=== PATIENT | male | born 1965 | race Caucasian/White ===

== ENCOUNTER → 2018-09-23 14:11 | Outpatient (CLI) | payer OTHER, SELFPAY ==
[2017-10-04 13:01] VITALS: BMI 38.4
--- NOTE | 2018-09-23 14:16 | RAD_ITS ---
HISTORY: left side rib pain after hitting up against a snow plow COMPARISON: None FINDINGS: # of images incl. paperwork: 5 XR Ribs Unilateral W/ PA Chest Min 3 Views: LINES/DEVICES: None. LUNGS: Radiographically clear. No consolidation, edema or effusion. No pneumothorax. MEDIASTINUM AND CARDIOVASCULAR STRUCTURES: Cardiac silhouette not enlarged. Central airways and mediastinal contour are unremarkable. RIBS AND OSSEOUS STRUCTURES: No apparent acute fractures. Chronic healed fracture mid shaft left clavicle. RAD/Ribs Uni Min 3V w/PA Chest IMPRESSION: Negative chest and ribs series. at 0159 Reported and signed by: Tayo Marie MD Electronically Signed: Tayo Marie, at 1:58 EST Tel , Service support ,
== END ==
PROVIDERS: Family Provider Family Medicine; PCP Family Medicine; Referring Provider Family Medicine; Visit Provider Family Medicine
DX: S20.212A Contusion of left front wall of thorax, initial encounter (principal)
CPT/HCPCS: 71101

== ENCOUNTER → 2019-05-08 09:43 | Outpatient (CLI) | payer OTHER, SELFPAY ==
[2017-10-04 13:01] VITALS: BMI 38.4
[2019-05-08 13:12] LABS: Hemoglobin A1c 5.6 % (4.2-6.3)
[2019-05-08 13:18] LABS: ALB/GLOB Ratio 1.1 RATIO (0.9-2.4); AST(SGOT) 27 U/L (15-37); Alanine Aminotransfer ALT/SGPT 41 U/L (16-61); Albumin, Serum 4.1 g/dL (3.2-5.0); Alkaline Phosphatase 65 U/L (45-117); Anion Gap 10 (5-15); BUN 20 mg/dL (7-18); BUN/Creat Ratio 16.4 RATIO (10-20); Chloride 106 mmol/L (98-107); Cholesterol 162 mg/dL (200); Creatinine, Serum 1.22 mg/dL (0.70-1.30); EST Glomerular Filtration Rate 66 mL/min (>60); Est Glom Filt Rate - Afr Amer 80 mL/min (>60); Globulin 3.9 g/dL (2.2-4.2); Glucose 87 mg/dL (74-106); High Density Lipoprotein 40 mg/dL; Potassium 3.9 mmol/L (3.5-5.1); Sodium Level 140 mmol/L (136-145); Triglycerides 128 mg/dL; Very Low Density Lipoprotein 26 mg/dL (5-40)
== END ==
PROVIDERS: Family Provider Family Medicine; PCP Family Medicine; Referring Provider Family Medicine; Visit Provider Nurse Practitioner Family
DX: E78.5 Hyperlipidemia, unspecified (principal); Z68.41 Body mass index [BMI] 40.0-44.9, adult
CPT/HCPCS: 36415; 80053; 80061; 83036

== ENCOUNTER → 2019-05-27 10:09 | Outpatient (CLI) | payer OTHER, SELFPAY ==
[2017-10-04 13:01] VITALS: BMI 38.4
--- NOTE | 2019-05-27 10:12 | RAD_ITS ---
STUDY: X-RAY - LEFT ELBOW REASON FOR EXAM: Male, 53 years old. Pain. Injury. TECHNIQUE: 3 view(s) of the elbow. COMPARISON: None. FINDINGS: Normal visualized humerus, radius and ulna. Normal radiocapitellar and ulnotrochlear articulations. There is dorsal soft tissue swelling over the olecranon. There is no demonstrated fracture. RAD/Elbow min 3 Views IMPRESSION: No fracture or dislocation. Electronically Signed: Jovan Santana MD at 18:02 EDT , Service support ,
== END ==
PROVIDERS: Family Provider Family Medicine; PCP Family Medicine; Referring Provider Family Medicine; Visit Provider Family Medicine
DX: M25.522 Pain in left elbow (principal)
CPT/HCPCS: 73080

== ENCOUNTER → 2019-11-20 10:45 | Outpatient (CLI) | payer OTHER, SELFPAY ==
[2019-11-20 13:03] LABS: Anion Gap 4 (5-15); BUN 18 mg/dL (7-18); BUN/Creat Ratio 16.8 RATIO (10-20); Calcium,Total 8.9 mg/dL (8.5-10.1); Chloride 108 mmol/L (98-107); Creatinine, Serum 1.07 mg/dL (0.70-1.30); EST Glomerular Filtration Rate 77 mL/min (>60); Est Glom Filt Rate - Afr Amer 93 mL/min (>60); Glucose 89 mg/dL (74-106); Potassium 4.2 mmol/L (3.5-5.1); Sodium Level 138 mmol/L (136-145)
== END ==
PROVIDERS: PCP Family Medicine; Visit Provider Family Medicine
DX: I10 Essential (primary) hypertension (principal)
CPT/HCPCS: 36415; 80048

== ENCOUNTER 2020-06-21 07:28 | Day surgery (SDC) | payer OTHER, SELFPAY ==
[2017-10-04 13:01] VITALS: BMI 38.4
[2020-06-21] VITALS (7 sets, daily range): BP systolic 109–138; BP diastolic 74–93; PULSE 69–82; RESP 16; TEMP 36.6–36.8; O2SAT 92–97; BMI 37.9
--- NOTE | 2020-06-21 08:23 | HP.PCM_ITS ---
History of Present Illness Date of Admission: 06/21/20 The patient is a 54 year old M who presents for screening colonoscopy. He has never had a colonoscopy in the past. He denies any blood in his stool or abdominal pain. No family history of colon cancer. Past Medical/Surgical History - Planned Operation Planned Operative Procedure/s: COLONSCOPY Date of Operative Procedure: 06/21/20 Permit Signed: Yes S.O.S: No Is This Patient Having a Total Joint: No - Previous Hospitalizations/Surgeries HX Hospitalizations: No HX of Surgeries: APPENDECTOMY. R THUMB. HERNIA. 2 L KNEE. R KNEE Any Problems With Anesthesia: No You/Your Family Experience Fever (Hyperthermia) With Anes: No Cholinesterase deficiency: No - Cardiovascular Hx Chest Pain within Last 2 months: No Hx of Irregular Heartbeat and/or Afib: No Hx Heart Attack: No Hx Congestive Heart Failure: No Hx Rheumatic Fever: No Hx Hypertension: Yes - ON MEDS Hx Internal Defibrillator: No Hx Pacemaker: No Hx Cardiac Catheterization: No Hx Cardiac Surgery/Stents/Etc.: No Hx Stress Test: Yes - 15-18 YRS AGO HX Edema: No Hx Pain in Legs when Walking/Leg Cramps: No - Respiratory Chronic Cough: No HX of Shortness of Breath: No Hoarseness: No Hx Chronic Obstructive Pulmonary Disease (COPD): No Hx Asthma: No Hx Emphysema: No Hx Sleep Apnea: Yes CPAP: Yes - NON-COMPLIANT BIPAP: No Hx Oxygen Use at Home: No Hx Respiratory Tract Infection/Cold (presently): No Result (for STOP score): Positive Hx Smoking: No Smoking Status: Never smoker - Gastrointestinal Hx Gastroesophageal Reflux: No Hx Gastrointestinal Disorders: No Hx Gastrointestinal Bleed: No Hx Ulcer: No Hx Hiatal Hernia: No Difficulty Chewing/Swallowing: No Recent Onset of Swallowing Problems: No Special diet followed at home: No Hx Unplanned Weight Loss of 20#: No HX Unplanned Weight Gain of 20#: No - Neurological Hx Seizures: No HX Syncope/Blackout Spells/Unconsciousness: No Hx CVA/Stroke: No Hx Transient Ischemic Attacks (TIA): No Hx Multiple Sclerosis: No Hx Parkinson's Disease: No Hx Head/Neck Injury: No Hx Headaches: No Hx Back Injury/Pain: No Recent Onset of Speech Difficulty: No Restless Legs: No Does patient have nerve stimulator: No - Blood Disorder Hx Leukemia: No Bleeding Tendencies: No Hx Deep Vein Thrombosis: No Hx High Cholesterol: Yes - ON MED Blood Transmitted Disease: No Hx Hepatitis: No Hx Cirrhosis: No Hx Anemia: No Hx Blood Disorders: No - Genitourinary Hx Renal Disease: No - Musculoskeletal Hx Arthritis: No Hx Rheumatoid Arthritis: No Hx Gout: Yes Recent Onset of an Orthopedic Problem: No - Endocrine Hx Diabetes: No Thyroid Disease: No Hx Steroid Therapy: No - Psycho/Social Hx Substance Use: No Hx Alcohol Use: Yes - SOCIAL Hx Anxiety: No Hx Depression: No Mental Illness: No Hx Dementia: No - Miscellaneous Hx Cancer: No Recent Exposure to Contagious Disease: No Active MRSA: No Hx of C-Diff: No Any Loose Teeth: No Allergies No Known Allergies Allergy (Verified 06/14/20 09:42) - Discharge Is Pt Admitted From a Detention, or a Intermediate: No Who Could Help: After D/C, Where Do you Plan to Go: Return Home - Physical Exam Vitals/I&O's: Vital Signs Temp Pulse Resp BP Pulse Ox 98 F 77 16 138/93 H 96 06/21/20 07:51 06/21/20 07:51 06/21/20 07:51 06/21/20 07:51 06/21/20 07:51 Oxygen Delivery Method Room Air Weight: 256 lb 13.416 oz Body Mass Index (BMI) 37.9 General: Alert, Oriented x3 Lungs: Normal air movement Cardiovascular: Regular rate, Regular Rhythm Abdomen: Soft, Non Tender, Non-Distended Current Medications Lactated Ringer's () 1,000 mls @ 100 mls/hr IV .Q10H [facility] Assessment/Plan 54-year-old male for screening colonoscopy I explained endoscopy in detail to the patient. I explained the risks including but not limited to stroke or heart attack with anesthesia, perforation of the GI tract, bleeding, infection. I explained that any of these could necessitate further emergency surgery. The patient understands and all questions were answered sufficiently. The patient wishes to proceed with procedure. We discussed the current risks associated with COVID-19. While it is understood that there is a community spread of COVID-19, the risk of zoya COVID-19 while at [facility] ([facility]) is very low; however, the risk cannot be completely mitigated because of the community spread of the disease. We discussed in detail the risk of exposure to and/or potential harm posed by the COVID-19 virus with having a surgery/procedure at this time versus the risk of delaying the surgery/procedure. It is not possible to know either the risk of delaying the surgery or procedure or chance of getting an infection with perfect accuracy, but a joint decision was made to proceed at this time with the scheduled surgery/procedure as indicated on the consent form. Patient was notified that we will need to comply with any screening or testing [facility] wishes to perform or that surgery may be delayed for any positive results. Silviano Villegas MD Pager: [facility] [address] [place] [address] [address] [place] [address] Office: Surgery Risks - Colonoscopy Risks Include but are not Limited To: Risks include but are not limited to: Bleeding, perforation requiring further surgery, inability to complete colonoscopy requiring barium enema.
--- NOTE | 2020-06-21 08:47 | OP.COLON_ITS ---
Patient Name: Joaquim Conn Procedure Date: 06/21/2020 8:29 AM Date of : 1965 Age: 54 Procedure: Colonoscopy Indications: Screening for colorectal malignant neoplasm Providers: Silviano Villegas MD Referring MD: David Murray MD Medicines: Monitored Anesthesia Care Patient Profile: This is a 54 year old male. Refer to note in patient chart for documentation of history and physical. Last Colonoscopy: none. The patient's first colonoscopy is today. Complications: No immediate complications. Procedure: Pre-Anesthesia Assessment: - Prior to the procedure, a History and Physical was performed, and patient medications and allergies were reviewed. The patient's tolerance of previous anesthesia was also reviewed. The risks and benefits of the procedure and the sedation options and risks were discussed with the patient. All questions were answered, and informed consent was obtained. Prior Anticoagulants: The patient has taken no previous anticoagulant or antiplatelet agents. After reviewing the risks and benefits, the patient was deemed in satisfactory condition to undergo the procedure. After I obtained informed consent, the scope was passed under direct vision. Throughout the procedure, the patient's blood pressure, pulse, and oxygen saturations were monitored continuously. The pediatric colonoscope was introduced through the anus and advanced to the cecum, identified by appendiceal orifice and ileocecal valve. The colonoscopy was performed without difficulty. The patient tolerated the procedure well. The quality of the bowel preparation was good. Scope In: 8:34:43 AM Scope Withdrawal Time 0 hours 6 minutes 1 second Scope Out: 8:43:15 AM Total Procedure Duration Time 0 hours 8 minutes 32 seconds Findings: The entire examined colon appeared normal on direct and retroflexion views. Impression: - The entire examined colon is normal on direct and retroflexion views. - No specimens collected. Recommendation: - Discharge patient to home. - Resume previous diet. - Continue present medications. - Repeat colonoscopy in 10 years for screening purposes. Procedure Code(s): --- Professional --- 93661, Colonoscopy, flexible; diagnostic, including collection of specimen(s) by brushing or washing, when performed (separate procedure) Diagnosis Code(s): --- Professional --- Z12.11, Encounter for screening for malignant neoplasm of colon CPT copyright 2017 [employer] [place] [employer]. All rights reserved. The codes documented in this report are preliminary and upon roll over loader review may be revised to meet current compliance requirements. Silviano Villegas MD 06/21/2020 8:46:25 AM This report has been signed electronically. Number of Addenda: 0 Note Initiated On: 06/21/2020 8:29 AM
--- NOTE | 2020-06-21 08:47 | OP.CCLET_ITS ---
06/21/2020 David Murray MD [address] [id number] Re : Colonoscopy procedure for Joaquim Conn Dear Dr. Murray This procedure was performed on Sunday, June 21, 2020. My impressions and recommendations are as follows: Impressions : - The entire examined colon is normal on direct and retroflexion views. - No specimens collected. Recommendations : - Discharge patient to home. - Resume previous diet. - Continue present medications. - Repeat colonoscopy in 10 years for screening purposes. My findings are described in the full procedure note, which is enclosed. If I can be of further assistance, please feel free to contact me at Doctor phone number(s): , Work: . Sincerely, Silviano Villegas MD 06/21/2020 8:46:25 AM This report has been signed electronically.
== END 2020-06-21 09:30 | disposition home or self-care (01) ==
LOC: EN 07:29 → AC 07:29
PROVIDERS: Anesthesiology; PCP Family Medicine; Referring Provider Family Medicine; Visit Provider Surgery
PROC: 0DJD8ZZ Inspection of Lower Intestinal Tract, Via Natural or Artificial Opening Endoscopic (ICD-10-PCS; CPT 45378; principal; 2020-06-21 08:25)
DX: Z12.11 Encounter for screening for malignant neoplasm of colon (principal); I10 Essential (primary) hypertension; G47.30 Sleep apnea, unspecified; Z91.19 Patient's noncompliance with other medical treatment and regimen; E78.00 Pure hypercholesterolemia, unspecified; Z20.828 Contact with and (suspected) exposure to other viral communicable diseases; Z79.899 Other long term (current) drug therapy
CPT/HCPCS: 45378; 87635; C9803; J7120; J2405; U0003

== ENCOUNTER → 2021-01-13 15:13 | Outpatient (CLI) | payer OTHER, SELFPAY ==
[2020-06-21 07:51] VITALS: BMI 37.9
--- NOTE | 2021-01-13 16:00 | MRI_ITS ---
STUDY: MRI LEFT KNEE REASON FOR EXAM: Male, 55 years old. Left knee sprain. TECHNIQUE: Standardized fat and water weighted pulse sequences were obtained in all 3 orthogonal planes. COMPARISON: 06/26/2016. FINDINGS: There is truncation of the inner third of the medial meniscus consistent with partial meniscectomy. Otherwise consider tear. Normal hyaline cartilage of the medial femorotibial compartment. Mild marrow edema in the medial tibial plateau consistent with early degenerative changes. Normal medial collateral ligamentous complex (MCL). Normal distal semimembranosus, gracilis and semitendinosus tendons. Normal lateral meniscus. Normal hyaline cartilage of the lateral femorotibial compartment. Normal lateral femoral condyle and tibial plateau. Normal proximal tibiofibular articulation. Normal lateral collateral (fibular) ligament. Normal popliteus tendon. Normal biceps femoris tendon. Normal anterior cruciate ligament (ACL). Normal posterior cruciate ligament (PCL). Normal congruent patellofemoral articulation. Mild fissuring of the patellar cartilage medially and at the median ridge. Signal abnormality of the medial trochlear cartilage. Normal medial and lateral patellar retinaculum. Normal quadriceps tendon. Normal patellar tendon. Normal Hoffa''s fat pad. Moderate joint effusion. Gastrocnemius-semimembranosus bursal prolapse. The soft tissues are unremarkable. The otherwise visualized osseous structures are unremarkable. MRI/Lower Ext Joint Only (Routine) IMPRESSION: 1. Joint effusion and bursal prolapse. 2. Fissuring of the patellar cartilage. 3. Prior partial medial meniscectomy, otherwise consider meniscal tear. 4. Early degenerative changes of the medial tibial plateau. Electronically Signed: Maryann Hernandez MD at 21:32 EDT Tel , Service support ,
== END ==
PROVIDERS: PCP Family Medicine; Referring Provider Family Medicine; Visit Provider Family Medicine
DX: S83.92XA Sprain of unspecified site of left knee, initial encounter (principal); X58.XXXA Exposure to other specified factors, initial encounter; M17.12 Unilateral primary osteoarthritis, left knee
CPT/HCPCS: 73721

== ENCOUNTER → 2021-05-26 09:47 | Outpatient (CLI) | payer OTHER, SELFPAY ==
[2021-05-26 12:46] LABS: Anion Gap 8 (5-15); BUN 20 mg/dL (7-18); BUN/Creat Ratio 15.9 RATIO (10-20); Calcium,Total 9.2 mg/dL (8.5-10.1); Chloride 105 mmol/L (98-107); Creatinine, Serum 1.26 mg/dL (0.70-1.30); EST Glomerular Filtration Rate 63 mL/min (>60); Est Glom Filt Rate - Afr Amer 76 mL/min (>60); Glucose 100 mg/dL (74-106); Potassium 4.1 mmol/L (3.5-5.1); Sodium Level 137 mmol/L (136-145)
== END ==
PROVIDERS: PCP Family Medicine; Referring Provider Family Medicine; Visit Provider Family Medicine
DX: I10 Essential (primary) hypertension (principal)
CPT/HCPCS: 36415; 80048

== ENCOUNTER → 2021-06-08 12:06 | Outpatient (CLI) | payer OTHER, SELFPAY ==
--- NOTE | 2021-06-08 12:10 | RAD_ITS ---
STUDY: X-RAY - RIGHT SHOULDER REASON FOR EXAM: Male, 55 years old. RC INJURY TECHNIQUE: 4 view(s) of the shoulder. COMPARISON: None. FINDINGS: Normal glenohumeral articulation. Normal acromioclavicular joint. Normal acromion. Normal humeral head and visualized proximal humerus. The soft tissue structures are unremarkable. Normal visualized pulmonary apex. RAD/Shoulder min 2 Views IMPRESSION: Normal x-ray examination of the shoulder. Electronically Signed: Jesus Draper MD at 15:11 EDT , Service support ,
== END ==
PROVIDERS: PCP Family Medicine; Referring Provider Family Medicine; Visit Provider Family Medicine
DX: S46.009A Unspecified injury of muscle(s) and tendon(s) of the rotator cuff of unspecified shoulder, initial encounter (principal)
CPT/HCPCS: 73030

== ENCOUNTER → 2021-07-25 07:13 | Outpatient (CLI) | payer OTHER, SELFPAY ==
--- NOTE | 2021-07-25 07:26 | MRI_ITS ---
STUDY: MRI RIGHT SHOULDER REASON FOR EXAM: Right shoulder pain and limited range of motion for 1.5 months, no specific injury. TECHNIQUE: Standardized fat and water weighted pulse sequences were obtained in all 3 orthogonal planes. COMPARISON: Radiographs 06/08/2021. FINDINGS: There is mild supraspinatus tendinosis and a small linear low to intermediate grade partial-thickness tear of the articular surface of the distal supraspinatus tendon at the greater tuberosity insertion (proton-density coronal image 14) with very mild delamination. There is infraspinatus tendinosis (T2 coronal images 9, 10) without discrete tendon tear. Normal subscapularis tendon. Normal teres minor tendon. There is a low-grade strain of the distal supraspinatus muscle (T2 coronal images 15, 16). Normal infraspinatus muscle. Normal subscapularis muscle. Normal teres minor muscle. There is mild glenohumeral arthrosis with mild chondral thinning of the glenoid (T2 axial images 14, 15) and very small subchondral cyst of the glenoid. There is cystic change of the greater tuberosity. Normal biceps labral complex. Normal intracapsular long biceps tendon. Normal labrum. Normal capsulo- ligamentous complex. There is mild acromioclavicular arthrosis (T2 sagittal image 16). There is a Type II morphology (curved), with a neutral orientation. There is no subacromial-subdeltoid bursal fluid. Normal visualized coracohumeral and coracoacromial ligaments. Normal deltoid muscle. Normal trapezius muscle. MRI/Upper Ext Joint Only(Routine) IMPRESSION: Small partial-thickness tear and mild tendinosis of the supraspinatus tendon. Infraspinatus tendinosis. Low-grade strain of the supraspinatus muscle. Mild glenohumeral arthrosis. Mild acromioclavicular arthrosis. Electronically Signed: Herbert Silva MD at 9:28 EST Tel , Service support ,
== END ==
PROVIDERS: PCP Family Medicine; Referring Provider Family Medicine; Visit Provider Family Medicine
DX: M25.511 Pain in right shoulder (principal)
CPT/HCPCS: 73221

== ENCOUNTER 2021-07-30 12:09 | Emergency (ER) | payer OTHER, SELFPAY ==
[2021-07-30 12:10] VITALS: BP 149/98; PULSE 93; RESP 17; TEMP 35.6; O2SAT 94; BMI 39.2
--- NOTE | 2021-07-30 12:30 | VDLE_ITS ---
Reason For Study: PAIN RIGHT LEFT GSV is normal. CFV is compressible, spontaneous, phasic, CFV is compressible, spontaneous, phasic, competent, and demonstrates normal competent and demonstrates normal augmentation. augmentation. FV is compressible, spontaneous, phasic, competent and demonstrates normal augmentation. POP V is compressible, spontaneous, phasic, competent and demonstrates normal augmentation. T/P Trunk is compressible. PTV is compressible. RT PerV is compressible. There is a non-vascularized, echogenic structure noted in the Popliteal space, measuring 4.10 x 2.71 cm. VL/Venous Duplex US, Unilateral Interpretation Summary There is no evidence of right lower extremity deep vein thrombosis. Right great saphenous vein appears patent and compressible segmentally. Right popliteal space 4.1 x 2.71 c m nonvascular cystic structure consistent with a Posey's cyst. Clinical correlation would be appropr iate. Normal flow patterns left common femoral vein Ordering Physician: Delon Mohamud Referring Physician: ALIE NGUYEN Performed By: Evelin Garcia, BRITTANIE, RVT
--- NOTE | 2021-07-30 12:30 | EX.ED.UPPERE ---
HPI History of Present Illness HPI Narrative: Patient presents with right knee pain that has been getting worse over the past 1-1/2 weeks. Patient states she is concerned over possible blood clot. Patient states the pain is localized to the posterior aspect of his right knee and into his right calf. Patient denies any specific trauma or injury. Patient describes his pain as sharp. Patient states his pain is worse with complete extension of his right knee. Patient states nothing seems to help with the pain. Patient denies any paresthesias or weakness. Patient also complains of pain in both shoulders. Patient had a recent MRI which showed a rotator cuff tear in his right shoulder. Chief Complaint: Upper Extremity Injury Informant: patient Onset/Context/Timing Onset: Weeks (1.5) Context: Gradual Onset Timing: Continuous Quality of Pain: Sharp Location: Right popliteal area and right calf Worsened by: Complete extension Relieved by: Nothing Associated Symptoms Associated Symptoms: Negative for Parasthesia, Weakness and Loss of Funtion PFSH PFSH Medical History (Updated 07/30/21 @ 13:[address] Delon Mohamud DO) Hyperlipidemia Hypertension Home Medications amlodipine 10 mg tablet 10 mg PO QDAY 10/04/17 [History Last Taken 06/21/20 06:30 10 MG] atorvastatin 20 mg tablet 20 mg PO QDAY 10/04/17 [History Last Taken Unknown] lisinopril 20 mg-hydrochlorothiazide 25 mg tablet 1 tab PO .once a day tab 10/04/17 [History Last Taken Unknown] meloxicam 15 mg PO DAILY #10 tab 07/30/21 [Rx Last Taken Unknown] Allergy/AdvReac Type Severity Reaction Status Date / Time No Known Allergies Allergy Verified 07/30/21 12:10 Family History (Updated 10/04/17 @ 13:05 by Jamee Chacko) Daughter Brain tumor Other Non Hodgkin's lymphoma Surgical History S/P hernia repair S/P left knee surgery S/P right knee surgery Social History Smoking Status: Never smoker ROS ROS ED Constitutional Constitutional ED: Denies chills or fever(s) Eyes Eyes: Denies blurry vision or change in vision ENT ENT ED: Denies rhinorrhea or sore throat Cardiovascular Cardiovascular: Denies chest pain or palpitations Respiratory/Chest Respiratory/Chest: Denies cough or dyspnea Gastrointestinal Gastrointestinal: Denies nausea or vomiting Genitourinary Genitourinary ED: Denies dysuria or hematuria Musculoskeletal Musculoskeletal: Denies back pain or neck pain Integumentary Denies abscess or rash Neurologic Neurologic: Denies headache(s) or weakness Allergic/Immunologic Allergic/Immunologic ED: Denies mouth swelling or urticaria EXAM Physical Exam Const Vital Signs: 07/30/21 12:10 Temperature 96.0 F L Temperature Source Temporal Pulse Rate 93 Respiratory Rate 17 Blood Pressure 149/98 H Blood Pressure Mean 115 Pulse Ox 94 Oxygen Delivery Method Room Air Positive well nourished and well developed General Appearance ED: well developed HEENT Reports moist mucous membranes Neck supple and no JVD Resp normal respiratory effort and clear to auscultation bilaterally Cardio regular rate, regular rhythm and no murmurs GI normal to inspection, nondistended, normoactive bowel sounds and non-tender Palpation: soft Extremity normal to inspection Extremity Narrative: There is some tenderness over the right popliteal area. There is also mild tenderness in the right upper calf area. There is no edema. There is no bony crepitance or step-off. There is no ecchymosis. Pedal pulses are equal bilaterally. Sensation was intact to light touch in all digits. General Extremety ED: Negative for edema or tenderness General Extremity: Negative for edema Neuro oriented x3, CN's II-XII intact bilaterally and no sensory deficits noted Sensorium / Orientation: alert Motor Exam: strength 5/5 throughout Psych mental status grossly normal Skin no rashes or lesions noted MDM MDM MDM Narrative Medical decision making narrative: Venous duplex of the right lower extremity was obtained. There is no evidence of DVT. There is a Posey's cyst noted. Patient was advised of his findings. Patient was given a prescription for meloxicam. Patient was instructed to follow-up with his primary care physician tomorrow as scheduled. Patient understood and was agreeable with the plan. All questions were answered. Discharge Plan Triage Chief Complaint: Upper Extremity Injury ED Provider: Delon Mohamud Dx/Rx/DC Orders Clinical Impression: Knee pain, right Instructions: ED Knee Pain of Uncertain Cause Prescriptions: New meloxicam 15 mg tablet 15 mg PO DAILY Qty: 10 RF: 0 No Action lisinopril-hydrochlorothiazide 20-25 mg tablet 1 tab PO .once a day RF: 0 amlodipine 10 mg tablet 10 mg PO QDAY RF: 0 atorvastatin 20 mg tablet 20 mg PO QDAY RF: 0 Primary Care Provider: David Murray Referrals: David Murray MD [Primary Care Provider] - [facility] appointment Disposition Disposition: Home, Self Care
[2021-07-30 13:36] VITALS: RESP 16
== END 2021-07-30 13:37 | disposition home or self-care (01) ==
PROVIDERS: Emergency Provider Emergency Medicine; PCP Family Medicine
DX: M25.561 Pain in right knee (principal); R60.0 Localized edema; E78.5 Hyperlipidemia, unspecified; I10 Essential (primary) hypertension; Z79.899 Other long term (current) drug therapy; Z79.1 Long term (current) use of non-steroidal anti-inflammatories (NSAID)
CPT/HCPCS: 93971; 99282; J7030

== ENCOUNTER → 2021-07-31 11:35 | Outpatient (CLI) | payer OTHER, SELFPAY ==
--- NOTE | 2021-07-31 11:38 | RAD_ITS ---
STUDY: X-RAY - RIGHT KNEE REASON FOR EXAM: Right knee pain. TECHNIQUE: 4 view(s) of the knee. COMPARISON: None. FINDINGS: Normal visualized distal femur. There is a small cyst in the tibial plateau near the midline. Normal proximal tibiofibular articulation. Normal medial femorotibial compartment. Normal lateral femorotibial compartment. There is mild joint space narrowing of the patellofemoral articulation. There is a joint effusion. There is a small enthesophyte at the superior pole of the patella. RAD/Knee 4 or More Views IMPRESSION: Mild patellofemoral arthrosis. Small joint effusion. Electronically Signed: Herbert Silva MD at 12:07 EST Tel , Service support ,
== END ==
PROVIDERS: PCP Family Medicine; Referring Provider Family Medicine; Visit Provider Family Medicine
DX: M25.569 Pain in unspecified knee (principal)
CPT/HCPCS: 73564

== ENCOUNTER 2021-09-14 10:59 | Outpatient (CLI) | payer OTHER, SELFPAY ==
[2021-09-14 11:14] LABS: Lyme Ab Screen Interpretation REF LAB
[2021-09-15 15:44] LABS: Lyme Scn Total Ab w/Rflx <0.91 ISR (0.00-0.90)
== END 2021-09-14 23:59 | disposition short-term general hospital (02) ==
LOC: MFPLAB 11:03
PROVIDERS: PCP Family Medicine; Referring Provider Family Medicine; Visit Provider Family Medicine
DX: M25.50 Pain in unspecified joint (principal)
CPT/HCPCS: 36415; 86618

== ENCOUNTER 2021-09-20 11:38 | Outpatient (CLI) | payer OTHER, SELFPAY ==
[2021-09-20 15:30] LABS: Absolute Lymphocyte Count 2.74 X10^3/uL (0.83-4.51); Absolute Neutrophil Count 7.9 X10^3/uL (2.0-7.7); Basophil# 0.04 X10^3/uL; Basophil% 0.3 % (0-1); Eosinophil# 0.05 X10^3/uL; Eosinophils% 0.4 % (0-5); Erythrocyte Sedimentation Rate 27 mm/hr (0-20); Hematocrit 44.4 % (40-54); Hemoglobin 15.1 g/dL (13.0-16.5); Lymphocyte # 2.74 X10^3/ul (0.83-4.51); Lymphocyte % 23.3 % (19-41); Mean Corpuscular Hgb 29.2 pg (27.0-32.0); Mean Corpuscular Volume 85.9 fL (80-94); Mean Platelet Vol. 9.6 fl (6.2-12.0); Monocyte# 1.02 X10^3/uL; Monocyte% 8.7 % (0-10); NRBC Flagged by Analyzer 0 % (0-5); Neutrophil # 7.89 X10^3/uL (2.7-7.7); Platelet Count 360 K/mm3 (150-450); RBC Distribution Width CV 13.6 % (11.6-14.6); RBC Distribution Width SD 42.7 fl (35.1-43.9); Red Blood Count 5.17 M/mm3 (4.6-6.2); White Blood Count 11.8 K/mm3 (4.4-11.0)
[2021-09-20 15:41] LABS: Vitamin D,25 Hydroxy 33.2 ng/mL
[2021-09-23 16:22] LABS: ANTINUCLEAR ANTIBODIES DIRECT Negative (Negative)
== END 2021-09-20 23:59 | disposition short-term general hospital (02) ==
LOC: MFPLAB 11:41
PROVIDERS: PCP Family Medicine; Referring Provider Family Medicine; Visit Provider Family Medicine
DX: M25.50 Pain in unspecified joint (principal)
CPT/HCPCS: 36415; 82306; 85025; 85652; 86038; 86140; 86431

== ENCOUNTER 2021-09-20 12:20 | Outpatient (CLI) | payer OTHER, SELFPAY ==
--- NOTE | 2021-09-20 12:30 | CT_ITS ---
STUDY: CT SOFT TISSUE NECK WITHOUT CONTRAST REASON FOR EXAM: Male, 55 years old. NECK SWELLING RADIATION DOSAGE (If Supplied By Facility): CTDIvol = ( 19.94 ) mGy, DLP = ( 574.81 ) mGycm TECHNIQUE: The patient was scanned in a multi-detector CT scanner. High resolution transaxial imaging was performed without the administration of intravenous contrast material. Sagittal and coronal images were reconstructed. Individualized dose optimization techniques were used for this CT. COMPARISON: None. FINDINGS: Normal bilateral parotid glands. Normal bilateral data support specialist spaces. Normal bilateral parapharyngeal spaces. Normal bilateral carotid spaces. Normal bilateral sublingual and submandibular glands and spaces. Normal visualized nasopharynx. Normal retropharyngeal space. Normal perivertebral space. Tiny calcifications in the palatine tonsils. The visualized tongue, tongue base and oropharynx are normal. There are minimally enlarged lymph nodes of the neck, with preservation of normal kelley architecture, consistent with a reactive lymph hyperplasia. There is no demonstrated solid or cystic mass lesion. Normal epiglottis, bilateral vallecula and hypopharynx. The pre-epiglottic and paraglottic adipose spaces are normal. Normal visualized bilateral piriform sinuses, aryepiglottic folds, vocal cords, and arytenoid-cricoid articulations. Normal subglottic trachea. Normal bilateral lobes of the thyroid gland. Normal visualized pulmonary apices. Normal visualized paranasal sinuses. Normal visualized cervical spine. CT/Soft Tissue Neck without Contr IMPRESSION: Tiny calcifications in the palatine tonsils. Electronically Signed: Jesus Draper MD at 12:57 EST , Service support ,
== END 2021-09-20 23:59 | disposition short-term general hospital (02) ==
LOC: CT 12:21
PROVIDERS: PCP Family Medicine; Referring Provider Family Medicine; Visit Provider Family Medicine
DX: R22.1 Localized swelling, mass and lump, neck (principal)
CPT/HCPCS: 70490

== ENCOUNTER 2021-10-02 09:41 | Outpatient (CLI) | payer OTHER, SELFPAY ==
[2021-10-02 12:47] LABS: AST(SGOT) 15 U/L (15-37); Absolute Lymphocyte Count 2.85 X10^3/uL (0.83-4.51); Absolute Neutrophil Count 7.9 X10^3/uL (2.0-7.7); Alanine Aminotransfer ALT/SGPT 51 U/L (16-61); Albumin, Serum 3.9 g/dL (3.2-5.0); Alkaline Phosphatase 55 U/L (45-117); Anion Gap 8 (5-15); BUN 20 mg/dL (7-18); BUN/Creat Ratio 18.7 RATIO (10-20); Basophil# 0.07 X10^3/uL; Basophil% 0.6 % (0-1); Calcium,Total 9.6 mg/dL (8.5-10.1); Chloride 101 mmol/L (98-107); Creatinine, Serum 1.07 mg/dL (0.70-1.30); EST Glomerular Filtration Rate 76 mL/min (>60); Eosinophil# 0.06 X10^3/uL; Eosinophils% 0.5 % (0-5); Est Glom Filt Rate - Afr Amer 92 mL/min (>60); Glucose 80 mg/dL (74-106); Hematocrit 45.6 % (40-54); Hemoglobin 15.5 g/dL (13.0-16.5); Lymphocyte # 2.85 X10^3/ul (0.83-4.51); Lymphocyte % 24.1 % (19-41); Mean Corpuscular Hgb 28.5 pg (27.0-32.0); Mean Corpuscular Volume 83.8 fL (80-94); Mean Platelet Vol. 9.4 fl (6.2-12.0); Monocyte# 0.85 X10^3/uL; Monocyte% 7.2 % (0-10); NRBC Flagged by Analyzer 0 % (0-5); Neutrophil # 7.92 X10^3/uL (2.7-7.7); Neutrophil % 66.8 % (47-70); Platelet Count 363 K/mm3 (150-450); Potassium 3.6 mmol/L (3.5-5.1); Protein, Total 7.9 g/dL (6.4-8.2); RBC Distribution Width CV 13.8 % (11.6-14.6); Red Blood Count 5.44 M/mm3 (4.6-6.2); Sodium Level 135 mmol/L (136-145); White Blood Count 11.8 K/mm3 (4.4-11.0)
[2021-10-02 13:03] LABS: Rheumatoid Factor 31.9 IU/mL (<15)
[2021-10-02 13:20] LABS: Hepatitis B Surface Antibody Reactive; Hepatitis B Surface Antigen Non-Reactive (Nonreactive); Hepatitis C Antibody Non-Reactive (Nonreactive)
[2021-10-04 22:06] LABS: QNTFERON TB Mitogen Value > 10.00 IU/mL (.); QNTFERON TB Nil Value 0.02 IU/mL (.); QNTFERON TB1+ Ag Value 0.01 IU/mL (.); QNTFERON TB2+ Ag Value 0 IU/mL (.)
[2021-10-05 07:46] LABS: CCP IgG Antibodies 6 units (0-19); QNTIFERON TB Positive Criteria Negative (Negative)
== END 2021-10-02 23:59 | disposition short-term general hospital (02) ==
LOC: MTLAB 09:42
PROVIDERS: PCP Family Medicine; Referring Provider Internal Medicine Rheumatology; Visit Provider Internal Medicine Rheumatology
DX: M05.79 Rheumatoid arthritis with rheumatoid factor of multiple sites without organ or systems involvement (principal); I10 Essential (primary) hypertension; E78.5 Hyperlipidemia, unspecified
CPT/HCPCS: 36415; 80053; 85025; 86200; 86431; 86480; 86706; 86803; 87340

== ENCOUNTER → 2022-01-23 | Outpatient (CLI) | payer OTHER, SELFPAY ==
--- NOTE | 2022-01-23 06:38 | MRI_ITS ---
STUDY: MRI CERVICAL SPINE WITHOUT CONTRAST REASON FOR EXAM: Male, 56 years old. Neck pain and right arm pain. TECHNIQUE: Standardized fat and water weighted pulse sequences were obtained in the sagittal and axial planes. COMPARISON: MRI cervical spine without contrast 04/17/2016. CT neck without contrast 09/20/2021. FINDINGS: Normal foramen magnum and brainstem-cervical cord junction. Normal craniovertebral junction. Normal anterior atlantoaxial articulation. Normal odontoid process. Normal cervical lordosis. Normal vertebral bodies and posterior osseous elements. C2-3: Normal endplates. Normal disc height, signal and morphology. Normal central canal and intervertebral neural foramina. C3-4: Normal endplates. Normal disc height and morphology. Normal central canal and left intervertebral neural foramen. Pronounced stenosis of the right intervertebral neural foramen. C4-5: Normal endplates. Normal disc height, signal and morphology. Normal central canal. Pronounced stenosis of the right intervertebral neural foramen. Normal left intervertebral neural foramen. C5-6: Anterior marginal spurs. Pronounced disc space height narrowing. Prominent ventral extra dural defect eccentric to the right posterior marginal spurs. This is causing mild indentation of the ventral cord surface, right side more than left. Mild asymmetric central canal stenosis. Pronounced stenosis of the intervertebral neural foramina. C6-7: Normal endplates. Moderate disc space height narrowing. Mild ventral SOB defect due to posterior marginal spurs. Normal central canal. Pronounced stenosis of the intervertebral neural foramina. C7-T1: Normal endplates. Normal disc height, signal and morphology. Normal central canal and intervertebral neural foramina. T1-T2, T2-T3 and T3-T4: (Sagittal only). Normal endplates. Normal disc height and morphology. Normal central canal and intervertebral neural foramina. No intrinsic signal abnormality of the cervical spinal cord particularly at the C5-C6 disc space level where there is mild indentation and deformity of the ventral cord surface. Normal remaining cervical spinal cord. Normal included upper thoracic spinal cord. Normal included portions of the brainstem and cerebellum. Normal visualized soft tissue structures. MRI/Spine Cervical (Routine) IMPRESSION: 1. Mild deformity of the ventral cord surface due to prominent posterior marginal spurs, eccentric to the right at C5-C6 disc space level and pronounced stenosis of the intervertebral neural foramina. 2. No MRI evidence of myelomalacia of the cervical spinal cord. 3. Pronounced stenosis of the C6-C7 intervertebral neural foramina due to osteophytic encroachment. 4. Pronounced stenosis of the right C3-C4 and right C4-C5 intervertebral neural foramina due to osteophytes. 5. No obvious significant interval change when compared to MRI C-spine of 04/17/2016. COMMENT: The osteophytes are better seen on CT neck of 09/20/2021. Electronically Signed: Curt Shah MD at 11:51 EDT ,
== END | disposition home or self-care (01) ==
LOC: MRI 06:32
PROVIDERS: PCP Family Medicine
DX: M54.2 Cervicalgia (principal); M79.601 Pain in right arm
CPT/HCPCS: 72141

== ENCOUNTER → 2022-03-05 | Outpatient (CLI) | payer OTHER, SELFPAY ==
[2022-03-05 10:02] LABS: Absolute Lymphocyte Count 2.58 X10^3/uL (0.83-4.51); Absolute Neutrophil Count 4.5 X10^3/uL (2.0-7.7); Basophil# 0.05 X10^3/uL; Basophil% 0.6 % (0-1); Eosinophil# 0.08 X10^3/uL; Hematocrit 46.2 % (40-54); Hemoglobin 15.9 g/dL (13.0-16.5); Lymphocyte # 2.58 X10^3/ul (0.83-4.51); Lymphocyte % 32.7 % (19-41); Mean Corp Hgb Conc 34.4 g/dL (32-36); Mean Corpuscular Hgb 30.3 pg (27.0-32.0); Mean Corpuscular Volume 88.2 fL (80-94); Mean Platelet Vol. 9.6 fl (6.2-12.0); Monocyte# 0.65 X10^3/uL; Monocyte% 8.2 % (0-10); NRBC Flagged by Analyzer 0 % (0-5); Neutrophil # 4.52 X10^3/uL (2.7-7.7); Neutrophil % 57.2 % (47-70); Platelet Count 295 K/mm3 (150-450); RBC Distribution Width CV 14.3 % (11.6-14.6); RBC Distribution Width SD 45.5 fl (35.1-43.9); Red Blood Count 5.24 M/mm3 (4.6-6.2); White Blood Count 7.9 K/mm3 (4.4-11.0)
[2022-03-05 10:41] LABS: Anion Gap 6 (5-15); BUN 17 mg/dL (7-18); BUN/Creat Ratio 15.3 RATIO (10-20); Calcium,Total 9.3 mg/dL (8.5-10.1); Chloride 106 mmol/L (98-107); Cholesterol 188 mg/dL (200); Creatinine, Serum 1.11 mg/dL (0.70-1.30); EST Glomerular Filtration Rate 73 mL/min (>60); Est Glom Filt Rate - Afr Amer 88 mL/min (>60); Glucose 93 mg/dL (74-106); High Density Lipoprotein 54 mg/dL; Potassium 3.9 mmol/L (3.5-5.1); Sodium Level 138 mmol/L (136-145); Thyroid Stim Hormone (TSH) 1.38 uIU/mL (0.358-3.74); Triglycerides 74 mg/dL; Very Low Density Lipoprotein 15 mg/dL (5-40)
== END | disposition home or self-care (01) ==
LOC: MFPLAB 08:26
PROVIDERS: PCP Family Medicine; Visit Provider Family Medicine
DX: Z01.818 Encounter for other preprocedural examination (principal)
CPT/HCPCS: 36415; 80048; 80061; 84443; 85025

== ENCOUNTER 2022-09-17 14:38 | Inpatient (IN) | payer OTHER, SELFPAY ==
[2022-09-17 14:38] VITALS: BP 144/88; PULSE 90; RESP 20; TEMP 35.6; O2SAT 98; BMI 36.6
--- NOTE | 2022-09-17 15:08 | ED.VIS.GI ---
HPI <KIMBERLEE Sagastume - Last Filed: 09/17/22 21:59> HPI - GI History of Present Illness Chief Complaint: Abd Pain Narrative Narrative: Patient presents today with diverticulitis with perforated bowel that was diagnosed today. He began having left lower abdominal pain on and saw his PCP today who performed blood work and sent patient to [facility] for a CT scan of his abdomen and pelvis. Patient does not have a history of diverticulitis. Patient states he does not need anything for pain. <Dr. Wagner Uriostegui DO - Last Filed: 09/17/22 23:07> HPI - GI Narrative Narrative: Patient presents today with diverticulitis with perforation that was diagnosed today. He began having left lower abdominal pain on and saw his PCP today who performed blood work and sent patient to [facility] for a CT scan of his abdomen and pelvis. Patient does not have a history of diverticulitis. Patient states he does not need anything for pain. [facility] <KIMBERLEE Sagastume - Last Filed: 09/17/22 21:59> [facility] Medical History Hyperlipidemia Hypertension Obesity Rheumatoid arthritis Home Medications amlodipine 10 mg tablet 10 mg PO DAILY blood pressure 10/04/17 [History Last Taken 09/17/22] atorvastatin 20 mg tablet 20 mg PO DAILY cholesteral 10/04/17 [History Last Taken 09/17/22] lisinopril 20 mg-hydrochlorothiazide 25 mg tablet 1 tab PO DAILY blood pressure 10/04/17 [History Last Taken 09/17/22] cholecalciferol (vitamin D3) 125 mcg (5,000 unit) tablet 125 mcg PO DAILY SUPPLEMENT 09/17/22 [History Last Taken 09/16/22] folic acid 1 mg tablet 2 mg PO DAILY supplement 09/17/22 [History Last Taken 09/13/22] hydroxychloroquine 200 mg tablet 200 mg PO BID RHEUMATOID ARTHRITIS 09/17/22 [History Last Taken 09/13/22] meloxicam 15 mg tablet 15 mg PO DAILY rheumatoid arthritis 09/17/22 [History Last Taken 09/13/22] methotrexate sodium 2.5 mg tablet 20 mg PO COLON RHEUMATOID ARTHRITIS 09/17/22 [History Last Taken 09/09/22] prednisone 5 mg tablet 5 mg PO DAILY PRN FLARE UPS 09/17/22 [History Last Taken 09/10/22] turmeric 400 mg capsule 400 mg PO DAILY SUPPLEMENT 09/17/22 [History Last Taken 09/13/22] Allergy/AdvReac Type Severity Reaction Status Date / Time No Known Allergies Allergy Verified 07/30/21 12:10 Family History Daughter Brain tumor Sister Breast cancer Father Hypertension Other Non Hodgkin's lymphoma Surgical History History of appendectomy History of back surgery S/P hernia repair S/P left knee surgery S/P right knee surgery Social History household members: spouse Smoking Status: Never smoker alcohol intake: current alcohol intake frequency: a few times a month substance use type: does not use ROS <KIMBERLEE Sagastume - Last Filed: 09/17/22 21:59> ROS ED Constitutional Constitutional ED: Denies chills, fever(s) or sweats ENT ENT ED: Denies rhinorrhea or sore throat Cardiovascular Cardiovascular: Denies chest pain, palpitations or racing heartbeat Respiratory/Chest Respiratory/Chest: Denies cough, dyspnea or dyspnea on exertion Gastrointestinal Gastrointestinal: Reports abdominal pain; Denies nausea or vomiting Genitourinary Genitourinary ED: Denies dysuria, hematuria or urinary frequency Musculoskeletal Musculoskeletal: Denies arthralgias, back pain or myalgias Integumentary Denies abscess, Abrasions or rash Neurologic Neurologic: Denies headache(s), paresthesias or weakness Psychiatric Psychiatric: Denies anxiety, depression or suicidal thoughts EXAM <KIMBERLEE Sagastume - Last Filed: 09/17/22 21:59> Physical Exam Const Vital Signs: 09/17/22 14:38 Temperature 96.1 F L Temperature Source Temporal Pulse Rate 90 Respiratory Rate 20 H Blood Pressure 144/88 H Blood Pressure Mean 106 Pulse Ox 98 Oxygen Delivery Method Room Air Positive well nourished and well developed General Appearance ED: well developed and NAD HEENT Reports moist mucous membranes normocephalic and atraumatic Eyes PERRL and EOMs intact bilaterally Neck no lymphadenopathy and supple Resp normal respiratory effort and clear to auscultation bilaterally Cardio regular rate, regular rhythm and no murmurs GI non-distended and no masses GI Narrative: Patient does have some tenderness to palpation in the lower left quadrant. Palpation: soft Extremity full ROM Neuro CN's II-XII intact bilaterally, moves all extremities, no sensory deficits noted and gait normal Sensorium / Orientation: alert Motor Exam: strength 5/5 throughout Psych mental status grossly normal and thought process normal Skin no wounds General Skin Exam: Negative for jaundice <Dr. Wagner Uriostegui DO - Last Filed: 09/17/22 23:07> Physical Exam Const Vital Signs: 09/17/22 14:38 Temperature 96.1 F L Temperature Source Temporal Pulse Rate 90 Respiratory Rate 20 H Blood Pressure 144/88 H Blood Pressure Mean 106 Pulse Ox 98 Oxygen Delivery Method Room Air [facility] <KIMBERLEE Sagastume - Last Filed: 09/17/22 21:59> [facility] Narrative Medical decision making narrative: Patient was started on Zosyn here in the ED and given a liter of fluids. Vital signs are stable and he is in no acute distress. He is nontoxic-appearing. I offered patient pain control and he declined stating he was not in any pain and did not need it. Dr. Castelan agreed to be consulted and in agreement that patient be admitted to the hospital for further treatment. Patient has been discussed with hospitalist and will be admitted to the hospital for further surgical treatment. Patient is comfortable with plan. <Dr. Wagner Uriostegui, - Last Filed: 09/17/22 23:07> [facility] Treatment and Re-Evaluation Narrative: This patient was seen with a PA/PHARMACEUTICAL ASSISTANT Individually assessed they patient including history and physical. I have reviewed everything on the chart that is available and agree with the documentation provided by the PA/PHARMACEUTICAL ASSISTANT including discussion about the assessment, treatment plan, discussion, and return precautions. Patient seen and evaluated on arrival for abdominal pain. He had previous lab work done today which was within normal limits. CT of the abdomen pelvis was obtained which showed diverticulitis with a small area of perforation. No abscess was noted. Given this reading I did speak with Dr. Castelan who is on-call for surgery. Patient given Zosyn. He does not want a thing for pain as his pain is minimal at rest. Patient discussed with the hospitalist for admission. Impression: #1 acute diverticulitis with colon perforation Discharge Plan Dx/Rx/DC Orders Clinical Impression: Diverticulitis of colon with perforation Disposition Disposition: Acute Care Hospital [facility] Discharge Date/Time: 09/17/22 16:34
--- NOTE | 2022-09-17 15:30 | HP.PCM.HOS_ITS ---
HPI - General General Date of Admission: 09/17/22 Date of Service: 09/17/22 Chief Complaint: LLQ abdominal pain. HPI Narrative The patient is a 56 y/o M w/ PMHx: Rheumatoid arthritis, Obesity, HTN, HLD who presents to the [facility] ED on 09/17/22 with history of recently having onset of left lower quadrant abdominal pain starting on prior to current presentation with PCP evaluation with outpatient CBC, CMP and CT scan of his abdomen and pelvis with imaging consistent with unfortunately sigmoid diverticulitis with a loculated perforation with no significant lab derangements however given CT finding referred to the ED for evaluation and treatment. Patient reported onset of fevers up to 103 starting on Saturday and Saturday with no associated nausea or emesis but significant chills concurrently as well as loose stools since onset of abdominal discomfort which has been ongoing. He did not take his rheumatoid medications which were due 09/16/2022. He also with onset discussed with his family who are in healthcare his current situation and at that time they had recommended transitioning to clear liquid/soft diet until evaluation. Work-up in the ED included T96.1, heart rate 90, BP 144/88, respiratory rate 20, 98% on room air. All other evaluation performed outpatient by primary care physician and included CBC with WBC 6.9, hemoglobin 15.1, platelet 374 without marked shift, CMP unremarkable with no acute findings, lipase 111, CT abdomen and pelvis with localized acute sigmoid diverticulitis with loculated perforation the mesenteric side of the sigmoid mesentery. In the ED patient ministered IV Zosyn therapy. ED physician discussed case with Dr. Castelan who made no current recommendations about interventions or treatment with planned evaluation. [facility] Medical History (Updated 09/17/22 @ 15:[address] Sugar Santiago MD) Hyperlipidemia Hypertension Obesity Rheumatoid arthritis Home Medications amlodipine 10 mg tablet 10 mg PO DAILY blood pressure 10/04/17 [History Last Taken 09/17/22] atorvastatin 20 mg tablet 20 mg PO DAILY cholesteral 10/04/17 [History Last Taken 09/17/22] lisinopril 20 mg-hydrochlorothiazide 25 mg tablet 1 tab PO DAILY blood pressure 10/04/17 [History Last Taken 09/17/22] cholecalciferol (vitamin D3) 125 mcg (5,000 unit) tablet 125 mcg PO DAILY SUPPLEMENT 09/17/22 [History Last Taken 09/16/22] folic acid 1 mg tablet 2 mg PO DAILY supplement 09/17/22 [History Last Taken 09/13/22] hydroxychloroquine 200 mg tablet 200 mg PO BID RHEUMATOID ARTHRITIS 09/17/22 [History Last Taken 09/13/22] meloxicam 15 mg tablet 15 mg PO DAILY rheumatoid arthritis 09/17/22 [History Last Taken 09/13/22] methotrexate sodium 2.5 mg tablet 20 mg PO COLON RHEUMATOID ARTHRITIS 09/17/22 [History Last Taken 09/09/22] prednisone 5 mg tablet 5 mg PO DAILY PRN FLARE UPS 09/17/22 [History Last Taken 09/10/22] turmeric 400 mg capsule 400 mg PO DAILY SUPPLEMENT 09/17/22 [History Last Taken 09/13/22] Allergy/AdvReac Type Severity Reaction Status Date / Time No Known Allergies Allergy Verified 07/30/21 12:10 Family History (Updated 09/17/22 @ 15:[address] Sugar Santiago MD) Daughter Brain tumor Sister Breast cancer Father Hypertension Other Non Hodgkin's lymphoma Surgical History (Updated 09/17/22 @ 15:[address] Sugar Santiago MD) History of appendectomy History of back surgery S/P hernia repair S/P left knee surgery S/P right knee surgery Social History (Updated 09/17/22 @ 15:[address] Sugar Santiago MD) household members: spouse Smoking Status: Never smoker alcohol intake: current alcohol intake frequency: a few times a month substance use type: does not use ROS ROS Narrative Admission Review of Systems: CONSTITUTIONAL: No weight loss, + fever, chills, weakness or fatigue. HEENT: Eyes: No visual loss, blurred vision, double vision or yellow sclerae. Ears, Nose, Throat: No hearing loss, sneezing, congestion, runny nose or sore t hroat. SKIN: No rash or itching, lesions, wounds. CARDIOVASCULAR: No chest pain, chest pressure or chest discomfort, palpitations, edema, orthopnea, syncopal events. RESPIRATORY: No shortness of breath, cough or sputum, wheezing, hemoptysis. GASTROINTESTINAL: + anorexia, abdominal pain, diarrhea, No nausea, vomiting, melena, BRBPR. GENITOURINARY: No dysuria, frequency, urgency or retention. NEUROLOGICAL: No headache, dizziness, syncope, paralysis, ataxia, numbness or tingling in the extremities, focal weakness, change in bowel or bladder control, seizure. MUSCULOSKELETAL: + muscle, back pain, joint pain or stiffness. HEMATOLOGIC: No anemia, bleeding or bruising. LYMPHATICS: No enlarged nodes. No history of splenectomy. PSYCHIATRIC: No history of depression or anxiety. ENDOCRINOLOGIC: No reports of sweating, cold or heat intolerance. No polyuria or polydipsia. ALLERGIES: No history of asthma, hives, eczema or rhinitis. Vital Signs Vital Signs Vital Signs: 09/17/22 14:38 Temperature 96.1 F L Temperature Source Temporal Pulse Rate 90 Respiratory Rate 20 H Blood Pressure 144/88 H Blood Pressure Mean 106 Pulse Ox 98 Oxygen Delivery Method Room Air Weight Weight: 247 lb 12.793 oz Body Mass Index (BMI) 36.6 Physical Exam Narrative Physical Examination: General: Awake, alert, oriented x 3 and cooperative, seated upright in ED bed, fatigued, uncomfortable appearing with certain movements and with exam. Skin: Normal color, normal turgor, no icterus, no cyanosis. HEENT: AT/NC, EOMI, PERRLA, dry MM, no carotid bruits or JVD noted. Lungs: Mildly diminished, greater bases, appropriate effort, no rales, ronchi or wheezing. Heart: Currently regular rate and rhythm; no gallop, rub audible. Abdomen: Soft, notable discomfort to left lower quadrant with voluntary guarding and rebound, no obvious distention, hyperactive bowel sounds throughout, no obvious HSM. Extremities: No cyanosis, clubbing, or edema. Neurological: Patient awake, alert, oriented as noted, cognitive function intact; pupils equally reactive to light and accommodation, cranial nerves II- XII grossly normal, moving all 4 extremities, no focal deficits, strength moderately global decrease secondary to acute presentation. Psychiatric: Affect appears fatigued, mildly uncomfortable especially following evaluation, no acute evidence of depressive or anxiety feelings. Assessment & Plan Assessment/Plan (1) Diverticulitis of both large and small intestine with perforation: PLAN: Plan The patient is a 56 y/o M w/ PMHx: Rheumatoid arthritis, Obesity, HTN, HLD who presents to the [facility] ED on 09/17/22 with history of recently having onset of left lower quadrant abdominal pain starting on prior to current presentation with PCP evaluation with outpatient CBC, CMP and CT scan of his abdomen and pelvis with imaging consistent with unfortunately sigmoid diverticulitis with a loculated perforation with no significant lab derangements however given CT finding referred to the ED for evaluation and treatment. #1. Acute Sigmoid Diverticulitis with loculated perforation on the mesenteric side of the sigmoid mesentery: Will admit to medical surgical floor, maintain on aggressive hydration, monitor I&Os, maintain NPO status w/ bowel rest, treat with IV zosyn regimen, IB famotidine, anti-emetics, pain regimen PRN, general surgery consulted and pending evaluation. #2. Hypertension: Pending surgery evaluation we will temporarily hold all oral hypertensive medication, PRN hydralazine. #3. Hyperlipidemia: Pending surgery evaluation we will temporarily hold oral statin therapy. #4. Obesity: Weight loss and lifestyle changes encouraged. #5. Rheumatoid arthritis: Complicates presentation, will temporarily hold patient low-dose prednisone which from records is primarily used for flareups, patient methotrexate and meloxicam. We will also temporarily hold patient home hydroxychloroquine regimen pending surgery evaluation. #6. DVT prophylaxis: SCDs, hold chemoprophylaxis pending surgery evaluation as suspect likely IR intervention versus surgical intervention may be considered. Admission Evaluation Time spent evaluating chart, patient history, patient evaluation, care planning and discussion with specialists: 57 minutes. Charges/Coding Visit Charges Inpatient E&M: 20728 Init Hosp L2
[2022-09-17 15:51] VITALS: BP 144/88; PULSE 90; RESP 20; TEMP 35.6; O2SAT 100
[2022-09-17] MEDS: 0.9% Normal Saline 1,000 ML 999 ML IV (15:52)
[2022-09-17 16:30] VITALS: BP 120/78; PULSE 75; RESP 16; TEMP 36.6; O2SAT 96
[2022-09-17 16:36] VITALS: BMI 36.1
[2022-09-17 17:10] VITALS: RESP 16; O2SAT 100
[2022-09-17] MEDS: 0.9% Normal Saline 1,000 ML 125 ML IV (17:22)
--- NOTE | 2022-09-17 20:05 | EX.PCM.CON.S ---
Assessment & Plan Assessment/Plan (1) Diverticulitis of both large and small intestine with perforation: PLAN: At the present time I think it is appropriate for us to try to treat him medically. I believe complete bowel rest is in order. May have some ice chips and chew gum. I agree with IV antibiotics. I do not think an NG tube is necessary at this time. I have reviewed the patient's colonoscopy and looked at the pictures he remarkably does not have much of any diverticulosis when used looking at the pictures. If the patient's white count elevates or his pain does not improve we will need to consider a sigmoid resection with primary anastomosis. HPI Consult Data Date of Consult: 09/17/22 HPI Narrative HPI Narrative: SANGITA BERMUDEZ, 56-year-old M w/ PMHx: Rheumatoid arthritis, Obesity, HTN, HLD who presents to the [facility] ED on 09/17/22 with history of recently having onset of left lower quadrant abdominal pain starting on prior to current presentation with PCP evaluation with outpatient CBC, CMP and CT scan of his abdomen and pelvis with imaging consistent with unfortunately sigmoid diverticulitis with a loculated perforation with no significant lab derangements however given CT finding referred to the ED for evaluation and treatment.? Patient reported onset of fevers up to 103 starting on Saturday and Saturday with no associated nausea or emesis but significant chills concurrently as well as loose stools since onset of abdominal discomfort which has been ongoing.? He did not take his rheumatoid medications which were due 09/16/2022.? He also with onset discussed with his family who are in healthcare his current situation and at that time they had recommended transitioning to clear liquid/soft diet until evaluation.? Work-up in the ED included T96.1, heart rate 90, BP 144/88, respiratory rate 20, 98% on room air.? All other evaluation performed outpatient by primary care physician and included CBC with WBC 6.9, hemoglobin 15.1, platelet 374 without marked shift, CMP unremarkable with no acute findings, lipase 111, CT abdomen and pelvis with localized acute sigmoid diverticulitis with loculated perforation the mesenteric side of the sigmoid mesentery. The present time the patient is not complaining of any peritoneal signs it does hurt when he lays down flat and presses in the left lower quadrant. [facility] Medical History Hyperlipidemia Hypertension Obesity Rheumatoid arthritis Home Medications amlodipine 10 mg tablet 10 mg PO DAILY blood pressure 10/04/17 [History Last Taken 09/17/22] atorvastatin 20 mg tablet 20 mg PO DAILY cholesteral 10/04/17 [History Last Taken 09/17/22] lisinopril 20 mg-hydrochlorothiazide 25 mg tablet 1 tab PO DAILY blood pressure 10/04/17 [History Last Taken 09/17/22] cholecalciferol (vitamin D3) 125 mcg (5,000 unit) tablet 125 mcg PO DAILY SUPPLEMENT 09/17/22 [History Last Taken 09/16/22] folic acid 1 mg tablet 2 mg PO DAILY supplement 09/17/22 [History Last Taken 09/13/22] hydroxychloroquine 200 mg tablet 200 mg PO BID RHEUMATOID ARTHRITIS 09/17/22 [History Last Taken 09/13/22] meloxicam 15 mg tablet 15 mg PO DAILY rheumatoid arthritis 09/17/22 [History Last Taken 09/13/22] methotrexate sodium 2.5 mg tablet 20 mg PO COLON RHEUMATOID ARTHRITIS 09/17/22 [History Last Taken 09/09/22] prednisone 5 mg tablet 5 mg PO DAILY PRN FLARE UPS 09/17/22 [History Last Taken 09/10/22] turmeric 400 mg capsule 400 mg PO DAILY SUPPLEMENT 09/17/22 [History Last Taken 09/13/22] Allergy/AdvReac Type Severity Reaction Status Date / Time No Known Allergies Allergy Verified 07/30/21 12:10 Family History Daughter Brain tumor Sister Breast cancer Father Hypertension Other Non Hodgkin's lymphoma Surgical History History of appendectomy History of back surgery S/P hernia repair S/P left knee surgery S/P right knee surgery Social History household members: spouse Smoking Status: Never smoker alcohol intake: current alcohol intake frequency: a few times a month substance use type: does not use ROS Constitutional Constitutional: Denies chills, fever(s) or weight loss ENT HEENT: Denies dysphagia Cardiovascular Cardiovascular: Denies chest pain Respiratory/Chest Respiratory/Chest: Denies cough or shortness of breath at rest Gastrointestinal Gastrointestinal: Reports abdominal pain and diarrhea; Denies hematochezia, melena, nausea or rectal bleeding Genitourinary Genitourinary: Denies change in urinary stream Physical Exam Const alert, oriented x3 and no apparent distress HEENT normocephalic and head/scalp atraumatic Eyes PERRL and EOMs intact bilaterally Resp clear to auscultation bilaterally Cardio Rate: regular rate Rhythm: regular rhythm GI GI Narrative: Patient has no rebound guarding or peritoneal signs. He is obviously tender in the left lower quadrant. Palpation: tender LLQ Extremity normal to inspection
[2022-09-17 20:27] VITALS: BP 132/78; PULSE 75; RESP 18; TEMP 36.8; O2SAT 95
[2022-09-17] MEDS: Famotidine 200 MG/20 ML MDV 20 MG in 0.9% Normal Saline (Pres. free 8 ML 300 MG IV (22:13)
[2022-09-18 04:00] VITALS: BP 137/78; PULSE 77; RESP 16; TEMP 36.6; O2SAT 95
[2022-09-18] MEDS: 0.9% Normal Saline 1,000 ML 125 ML IV (04:18)
[2022-09-18 06:10] LABS: Absolute Lymphocyte Count 1.58 X10^3/uL (0.83-4.51); Absolute Neutrophil Count 3.5 X10^3/uL (2.0-7.7); Basophil# 0.04 X10^3/uL; Basophil% 0.7 % (0-1); Eosinophils% 3.3 % (0-5); Hematocrit 40.7 % (40-54); Hemoglobin 13.5 g/dL (13.0-16.5); Lymphocyte # 1.58 X10^3/ul (0.83-4.51); Lymphocyte % 25.9 % (19-41); Mean Corp Hgb Conc 33.2 g/dL (32-36); Mean Corpuscular Hgb 29.2 pg (27.0-32.0); Mean Corpuscular Volume 88.1 fL (80-94); Mean Platelet Vol. 9.1 fl (6.2-12.0); Monocyte% 13.1 % (0-10); NRBC Flagged by Analyzer 0 % (0-5); Neutrophil # 3.46 X10^3/uL (2.7-7.7); Neutrophil % 56.8 % (47-70); Platelet Count 309 K/mm3 (150-450); RBC Distribution Width CV 14.2 % (11.6-14.6); RBC Distribution Width SD 45.1 fl (35.1-43.9); Red Blood Count 4.62 M/mm3 (4.6-6.2); White Blood Count 6.1 K/mm3 (4.4-11.0)
[2022-09-18 06:35] LABS: ALB/GLOB Ratio 0.8 RATIO (0.9-2.4); AST(SGOT) 21 U/L (15-37); Alanine Aminotransfer ALT/SGPT 39 U/L (16-61); Albumin, Serum 3.2 g/dL (3.2-5.0); Alkaline Phosphatase 50 U/L (45-117); Anion Gap 7 (5-15); BUN 12 mg/dL (7-18); BUN/Creat Ratio 9.6 RATIO (10-20); Chloride 106 mmol/L (98-107); Creatinine, Serum 1.25 mg/dL (0.70-1.30); EST Glomerular Filtration Rate 63 mL/min (>60); Est Glom Filt Rate - Afr Amer 77 mL/min (>60); Estimated Creatinine Clearance 65.99 ml/min; Globulin 3.9 g/dL (2.2-4.2); Glucose 83 mg/dL (74-106); Potassium 4.2 mmol/L (3.5-5.1); Protein, Total 7.1 g/dL (6.4-8.2); Sodium Level 139 mmol/L (136-145)
--- NOTE | 2022-09-18 07:44 | PN.HOSP_ITS ---
Subjective Subjective Follow-up for diverticulitis of both large and small intestine with perforation. Objective Data Objective Data Vital Signs: Vital Signs Temp Pulse Resp BP Pulse Ox O2 Del Method 98 F 77 16 137/78 H 95 Room Air 09/18/22 04:00 09/18/22 04:00 09/18/22 04:00 09/18/22 04:00 09/18/22 04:00 09/18/22 04:00 Oxygen Delivery Method Room Air Weight: 243 lb 12.8 oz Body Mass Index (BMI) 36.1 Intake & Output: Intake and Output for Last 24 Hours 09/16/22 09/17/22 09/18/22 23:59 23:59 23:59 Intake Total 1060 / 1060 1050 / 1050 Balance 1060 / 1060 1050 / 1050 Lab / Micro Data Result Diagrams: 09/18/22 05:35 09/18/22 05:35 Labs: Laboratory Results - last 24 hr 09/18/22 05:35: WBC 6.1, RBC 4.62, Hgb 13.5, Hct 40.7, MCV 88.1, MCH 29.2, MCHC 33.2, RDW Std Deviation 45.1 H, RDW Coeff of Mirela 14.2, Plt Count 309, MPV 9.1, Immature Gran % (Auto) 0.200, Neut % (Auto) 56.8, Lymph % (Auto) 25.9, [place] % (Auto) 13.1 H, Eos % (Auto) 3.3, Baso % (Auto) 0.7, Absolute Neuts (auto) 3.5, Absolute Lymphs (auto) 1.58, Nucleated RBC % 0 09/18/22 05:35: Sodium 139, Potassium 4.2, Chloride 106, Carbon Dioxide 26.0, Anion Gap 7, BUN 12, Creatinine 1.25, Estim Creat Clear Calc 65.99, Est GFR (MDRD) Af Amer 77, Est GFR (MDRD) Non-Af 63, BUN/Creatinine Ratio 9.6 L, Glucose 83, Calcium 9.0, Total Bilirubin 0.40, AST 21, ALT 39, Alkaline Phosphatase 50, Total Protein 7.1, Albumin 3.2, Globulin 3.9, Albumin/Globulin Ratio 0.8 L Physical Exam Narrative Physical exam General: Alert, Oriented x3, Cooperative HEENT: Atraumatic, PERRLA, EOMI, Normocephalic Oral: No Gingival or Mucosal Lesions/ Ulcerations Neck: Supple, No JVD, Negative Carotid Bruits Lungs: Air entry diminished in bilateral lung bases. No crepitation/rhonchi Cardiovascular: Regular rate, Regular Rhythm, Normal S1, Normal S2, No murmurs Abdomen: Bowel Sounds Present, Soft, mild tenderness over left lower quadrant. No palpable mass. Non-Distended : No renal angle tenderness. No suprapubic tenderness. Extremities: No edema, Capillary Refill Less than 3 Seconds Skin: No rashes, No breakdown Musculoskeletal: No Tenderness to Palpation of Joints or Extremities. Muscle strength 5/5 at major joints. Neurological: Cranial nerves II-XII grossly intact, DTR 2+/4 and Symmetrical, Neuro grossly intact Psych/Mental Status: Normal Affect, Appropriate. Assessment & Plan Assessment/Plan (1) Diverticulitis of both large and small intestine with perforation: PLAN: Plan The patient is a 56 y/o M is admitted after he had left lower quadrant abdominal pain starting on 09/13/2021 with outpatient evaluations including CT scan of abdomen pelvis consistent with sigmoid diverticulitis with loculated perforation. #1. Acute Sigmoid Diverticulitis with loculated perforation on the mesenteric side of the sigmoid mesentery: Patient admitted to [facility] floor. On IV fluid, n.p.o., IV Zosyn, antiemetic and pain medication. Surgical consult reviewed. Agree with the conservative management. #2. Hypertension: Blood pressure is in normal range. On IV as needed hydralazine. #3. Hyperlipidemia: Statin on hold. #4. Obesity: Weight loss and lifestyle changes encouraged. #5. Rheumatoid arthritis: Complicates presentation, temporarily hold patient low-dose prednisone which from records is primarily used for flareups, patient methotrexate and meloxicam. hold patient home hydroxychloroquine regimen pending surgery evaluation. #6. DVT prophylaxis: SCDs, On heparin 5000 units subcutaneous every 8 hourly Charges/Coding Visit Charges Inpatient E&M: 71632 Subs Hosp L2
[2022-09-18 08:17] VITALS: O2SAT 93
[2022-09-18 09:23] VITALS: BP 128/90; PULSE 82; RESP 18; TEMP 36.6; O2SAT 95
--- NOTE | 2022-09-18 11:15 | CASEMGMT ---
DE[facility]RA [place] Assessment: Face to Face with pt for initial transition planning/care coordination assessment. RN CM introduced self and role at [facility], pt voices understanding and consents to assessment. Pt is A/O x4 and answers all questions appropriately at this time. Pt sitting up in bed in no distress with at bedside. Care providers, pharmacy, and demographics verified/updated. Admitting Dx: perforated acute sigmoid diverticulitis PCP:Trevor Specialists:enedelia Lazo Pharmacy: [facility] Insurance: [employer] Prescription Benefit: yes LNOK: Ofelia Conn, Living Arrangements: Pt lives with and dtr in a single story home with one step to enter. Pt reports he is I in ADL's and denies concerns at home. Transportation: Pt drives self and denies concerns with transportation. DME/HHC/SNF: Pt has a CPAP but does not use, also has crutches. Pt denies hx of HHC or SNF stays. Pt states no concerns with going home at time of dc. Pt states no further concerns/needs. CM to follow. Advised pt to ask CM if any further question/concerns/needs arise, voices understanding. Pt Goal: Home Plan: Home
[2022-09-18] MEDS: Famotidine 200 MG/20 ML MDV 20 MG in 0.9% Normal Saline (Pres. free 8 ML 300 MG IV (11:48)
[2022-09-18 15:16] VITALS: BP 136/84; PULSE 81; RESP 16; TEMP 36.6; O2SAT 96
--- NOTE | 2022-09-18 15:51 | PN.SURG_ITS ---
Subjective Subjective His pain is significantly improved. No pain at rest. Still having diarrhea. Objective Data Objective Data Abdomen is much softer today. Not really complaining of much pain with deep palpation on the left lower quadrant. Vital Signs: Vital Signs Temp Pulse Resp BP Pulse Ox O2 Del Method 97.8 F 81 16 136/84 H 96 Room Air 09/18/22 15:16 09/18/22 15:16 09/18/22 15:16 09/18/22 15:16 09/18/22 15:16 09/18/22 15:16 Oxygen Delivery Method Room Air Weight: 243 lb 12.806 oz Body Mass Index (BMI) 36.1 Intake & Output: Intake and Output for Last 24 Hours 09/16/22 09/17/22 09/18/22 23:59 23:59 23:59 Intake Total 1060 / 1060 1110 / 1110 Balance 1060 / 1060 1110 / 1110 Lab / Micro Data Attestation: I reviewed the patient's lab results. Result Diagrams: 09/18/22 05:35 09/18/22 05:35 Labs: Laboratory Results - last 24 hr 09/18/22 05:35: WBC 6.1, RBC 4.62, Hgb 13.5, Hct 40.7, MCV 88.1, MCH 29.2, MCHC 33.2, RDW Std Deviation 45.1 H, RDW Coeff of Mirela 14.2, Plt Count 309, MPV 9.1, Immature Gran % (Auto) 0.200, Neut % (Auto) 56.8, Lymph % (Auto) 25.9, [place] % (Auto) 13.1 H, Eos % (Auto) 3.3, Baso % (Auto) 0.7, Absolute Neuts (auto) 3.5, Absolute Lymphs (auto) 1.58, Nucleated RBC % 0 09/18/22 05:35: Sodium 139, Potassium 4.2, Chloride 106, Carbon Dioxide 26.0, Anion Gap 7, BUN 12, Creatinine 1.25, Estim Creat Clear Calc 65.99, Est GFR (MDRD) Af Amer 77, Est GFR (MDRD) Non-Af 63, BUN/Creatinine Ratio 9.6 L, Glucose 83, Calcium 9.0, Total Bilirubin 0.40, AST 21, ALT 39, Alkaline Phosphatase 50, Total Protein 7.1, Albumin 3.2, Globulin 3.9, Albumin/Globulin Ratio 0.8 L Assessment & Plan Assessment/Plan (1) Diverticulitis of colon with perforation: PLAN: I think he is responding well to conservative measurements. I think we could advance him to full liquids and as long as he is not having any abdominal pain tomorrow we should be able to discharge him on oral antibiotics.
[2022-09-18 22:00] VITALS: BP 127/84; PULSE 76; RESP 16; TEMP 36.8; O2SAT 95
[2022-09-19] MEDS: Famotidine 200 MG/20 ML MDV 20 MG in 0.9% Normal Saline (Pres. free 8 ML 300 MG IV ×2 (00:36→09:22)
[2022-09-19 05:35] VITALS: BP 131/81; PULSE 71; RESP 18; TEMP 36.7; O2SAT 94
[2022-09-19] MEDS: 0.9% Normal Saline 1,000 ML 125 ML IV (05:40)
--- NOTE | 2022-09-19 07:14 | PCM.PN.SRG ---
Subjective Subjective patient feels much improved, notes no pain when lying still, minimal pain with movement Objective Data Objective Data Vital Signs: Vital Signs Temp Pulse Resp BP Pulse Ox O2 Del Method 98.1 F 71 18 131/81 H 94 Room Air 09/19/22 05:35 09/19/22 05:35 09/19/22 05:35 09/19/22 05:35 09/19/22 05:35 09/19/22 05:35 Oxygen Delivery Method Room Air Weight: 109.6 kg Body Mass Index (BMI) 36.1 Intake & Output: Intake and Output for Last 24 Hours 09/17/22 09/18/22 09/19/22 23:59 23:59 23:59 Intake Total 1060 / 1060 2640 / 2640 540 / 540 Balance 1060 / 1060 2640 / 2640 540 / 540 Lab / Micro Data Attestation: I reviewed the patient's lab results. Result Diagrams: 09/18/22 05:35 09/18/22 05:35 Physical Exam Const alert and oriented x3 Resp normal respiratory effort Effort and Inspection: able to speak in complete sentences GI GI Narrative: abdomen is soft and benign minimal tenderness in left lower quadrant no peritoneal signs noted Assessment & Plan Assessment/Plan (1) Diverticulitis of colon with perforation: PLAN: Can d/c to home Recommend low residue/fiber diet for at least two weeks continue antibiotics for at least another week follow up with Dr. Castelan as an outpatient encourage water intake and ambulation/walking
--- NOTE | 2022-09-19 08:25 | DCINST_ITS ---
Discharge Instructions Diet Discharge Diet: Light diet - advance as tolerated (Soft, bland diet for next 5 days and then advance to regular diet.) and Low fat / Low cholesterol Activity Discharge Activity: Return to Normal Activity Dressing / Incision Call your doctor if you observe: Fever of 101 or Higher, Coldness, Increased Pain, Numbness or Tingling, Change in Color, Inability to urinate, Inability to have a bowel movement, Shortness of breath, Dizziness, Fainting spells, Swelling in the ankles, Chest pain, Increased palpitations (irregular heartbeat), Calf discomfort and Uncontrolled pain Follow Up Care Test Results: Test results from this visit will be discussed in further detail at your follow- up appointment, if applicable. Discharge Plan Admission Admit Date/Time: 09/17/22 15:32 Primary Reason for Your Visit: Complicated sigmoid diverticulitis with small pe rforation Attending Provider: Rolan Kumar Primary Care Provider: David Murray Consulting Providers: Donnie Castelan ; Sugar Santiago Instructions Additional Instructions / Restrictions: Bviv-ozs-hyrmrtl Tylenol 500 mg for moderate pain 5-610 intensity and 1000 mg for severe pain -06/2010 intensity. Discharge Orders/Prescriptions Prescriptions: New amoxicillin-pot clavulanate [Augmentin] 500-125 mg tablet 1 tab PO Q12H Qty: 14 0RF Continued lisinopril-hydrochlorothiazide 20-25 mg tablet 1 tab PO DAILY amlodipine 10 mg tablet 10 mg PO DAILY atorvastatin 20 mg tablet 20 mg PO DAILY methotrexate sodium 2.5 mg tablet 20 mg PO COLON folic acid 1 mg tablet 2 mg PO DAILY Label Comments: TAKE 2 TABLETS BY MOUTH ONCE DAILY hydroxychloroquine 200 mg tablet 200 mg PO BID Label Comments: TAKE 1 TABLET BY MOUTH TWICE DAILY cholecalciferol (vitamin D3) 125 mcg (5,000 unit) Tablet 125 mcg PO DAILY turmeric 400 mg Capsule 400 mg PO DAILY Held prednisone 5 mg Tablet 5 mg PO DAILY PRN (Reason: FLARE UPS) Hold Instructions: Hold for 7 days meloxicam 15 mg tablet 15 mg PO DAILY Hold Instructions: Hold for 7 days. Referrals / Follow Up: Donnie Castelan MD [Med Staff - Active Staff] - David Murray MD [Primary Care Provider] - Disposition Disposition (needs filled in before D/C Order can be placed): Home, Self Care
[2022-09-19 08:32] VITALS: O2SAT 94
[2022-09-19 09:18] VITALS: BP 125/81; PULSE 69; RESP 16; TEMP 36.5; O2SAT 94
--- NOTE | 2022-09-19 09:36 | DS.PCM_ITS ---
Providers Date of Admission: 09/17/22 Date of Discharge: 09/19/22 Primary Care Physician: Dr. David Murray MD Consultations 09/17/22 16:39 Consult: General Surgery Routine Consulting Provider: Donnie Catselan Reason for Consult: Acute perforated sigmoid diverticulitis EMERGENT Consult: No MD Notified: Yes Date Notified: 09/17/22 Time Notified: 15:35 Method of Notification: ED Physician Initiated Reason For Visit: PERFORATED ACUTE SIGMOID DIVERTICULITIS Diagnosis Discharge Diagnosis (1) Diverticulitis of colon with perforation: Status: Acute Code(s): K57.20 - Diverticulitis of large intestine with perforation and abscess without bleeding Plan The patient is a 56 y/o M is admitted after he had left lower quadrant abdominal pain starting on 09/13/2021 with outpatient evaluations including CT scan of abdomen pelvis consistent with sigmoid diverticulitis with loculated perforation. #1. Acute Sigmoid Diverticulitis with loculated perforation on the mesenteric side of the sigmoid mesentery: Patient admitted to [facility] floor. On IV fluid, n.p.o., IV Zosyn, antiemetic and pain medication. Surgical consult reviewed. Agree with the conservative management. 09/19: Discussed with Dr. Castelan yesterday and soft diet was started. Patient tolerated well. No increasing abdominal pain. Seen by surgeon Dr. Mazariegos today. Recommended low residue fiber diet for at least 2 weeks. Patient is discharged on Augmentin for 1 more week. Follow-up with Dr. Castelan as an outpatient. Encouraged water intake ambulation. #2. Hypertension: Blood pressure is in normal range. On IV as needed hydralazine. Home medication resumed. #3. Hyperlipidemia: Statin on hold. #4. Obesity: Weight loss and lifestyle changes encouraged. #5. Rheumatoid arthritis: Complicates presentation, temporarily hold patient low-dose prednisone which from records is primarily used for flareups, patient methotrexate and meloxicam. hold patient home hydroxychloroquine regimen pending surgery evaluation. Patient advised to hold meloxicam and low-dose prednisone for healing of sigmoid perforation and diverticulitis. #6. DVT prophylaxis: SCDs, On heparin 5000 units subcutaneous every 8 hourly Discharge medication reconciliation done. Discharge follow-up instructions completed. Discharge process discussed with the patient and all questions were answered to patient's satisfaction. Total time spent, exact 35 minutes on discharge meds reconciliation, ex amination, coordination of care with nurses and ancillary staff, review of imaging and blood test and discussion with the patient on follow-up instructions. Medications at Discharge Home Medications amlodipine 10 mg tablet 10 mg PO DAILY blood pressure 10/04/17 atorvastatin 20 mg tablet 20 mg PO DAILY cholesteral 10/04/17 lisinopril 20 mg-hydrochlorothiazide 25 mg tablet 1 tab PO DAILY blood pressure 10/04/17 cholecalciferol (vitamin D3) 125 mcg (5,000 unit) tablet 125 mcg PO DAILY SUPPLEMENT 09/17/22 folic acid 1 mg tablet 2 mg PO DAILY supplement 09/17/22 hydroxychloroquine 200 mg tablet 200 mg PO BID RHEUMATOID ARTHRITIS 09/17/22 meloxicam 15 mg tablet 15 mg PO DAILY rheumatoid arthritis 09/17/22 methotrexate sodium 2.5 mg tablet 20 mg PO COLON RHEUMATOID ARTHRITIS 09/17/22 prednisone 5 mg tablet 5 mg PO DAILY PRN FLARE UPS 09/17/22 turmeric 400 mg capsule 400 mg PO DAILY SUPPLEMENT 09/17/22 amoxicillin 500 mg-potassium clavulanate 125 mg tablet (Augmentin) 1 tab PO Q12H Perforated sigmoid diverticulitis #14 tabs 09/18/22 Weight / BMI Weight Weight: 241 lb 10.026 oz Body Mass Index (BMI) 36.1 ABG / Lab / Microbiology Data Result Diagrams: 09/18/22 05:35 09/18/22 05:35 D/C Instructions Discharge Diet: Light diet - advance as tolerated (Soft, bland diet, low fiber residue for next 2 weeks and then advance to regular diet.) and Low fat / Low cholesterol Call your doctor if you observe: Fever of 101 or Higher, Coldness, Increased Pain, Numbness or Tingling, Change in Color, Inability to urinate, Inability to have a bowel movement, Shortness of breath, Dizziness, Fainting spells, Swelling in the ankles, Chest pain, Increased palpitations (irregular heartbeat), Calf discomfort and Uncontrolled pain Meaningful Use Info Meaningful Use Diagnoses (Choose all that apply): None applicable Discharge Plan Admission Admit Date/Time: 09/17/22 15:32 Primary Reason for Your Visit: Complicated sigmoid diverticulitis with small perforation Attending Provider: Rolan Kumar Primary Care Provider: David Murray Consulting Providers: Donnie Castelan ; Sugar Santiago Instructions Additional Instructions / Restrictions: Legt-rec-wnclutt Tylenol 500 mg for moderate pain 5-02/16 intensity and 1000 mg for severe pain -06/2010 intensity. Discharge Orders/Prescriptions Prescriptions: New amoxicillin-pot clavulanate [Augmentin] 500-125 mg tablet 1 tab PO Q12H Qty: 14 0RF Continued lisinopril-hydrochlorothiazide 20-25 mg tablet 1 tab PO DAILY amlodipine 10 mg tablet 10 mg PO DAILY atorvastatin 20 mg tablet 20 mg PO DAILY methotrexate sodium 2.5 mg tablet 20 mg PO COLON folic acid 1 mg tablet 2 mg PO DAILY Label Comments: TAKE 2 TABLETS BY MOUTH ONCE DAILY hydroxychloroquine 200 mg tablet 200 mg PO BID Label Comments: TAKE 1 TABLET BY MOUTH TWICE DAILY cholecalciferol (vitamin D3) 125 mcg (5,000 unit) Tablet 125 mcg PO DAILY turmeric 400 mg Capsule 400 mg PO DAILY Held prednisone 5 mg Tablet 5 mg PO DAILY PRN (Reason: FLARE UPS) Hold Instructions: Hold for 7 days meloxicam 15 mg tablet 15 mg PO DAILY Hold Instructions: Hold for 7 days. Referrals / Follow Up: Donnie Castelan MD [Med Staff - Active Staff] - David Murray MD [Primary Care Provider] - Disposition Disposition (needs filled in before D/C Order can be placed): Home, Self Care Charges/Coding Visit Charges Inpatient E&M: 48928 Disch Hosp >30min
== END 2022-09-19 11:55 | disposition home or self-care (01) | DRG 392 ==
LOC: ED 15:33 → MS3 16:07 → MS2 19:26
PROVIDERS: Admitting Provider Family Medicine; Emergency Provider Student in an Organized Health Care Education/Training Program; PCP Family Medicine; Visit Provider Internal Medicine
DX: K57.52 Diverticulitis of both small and large intestine without perforation or abscess without bleeding (principal); E66.9 Obesity, unspecified; M06.9 Rheumatoid arthritis, unspecified; E78.5 Hyperlipidemia, unspecified; I10 Essential (primary) hypertension; Z79.1 Long term (current) use of non-steroidal anti-inflammatories (NSAID); Z79.52 Long term (current) use of systemic steroids; Z68.36 Body mass index [BMI] 36.0-36.9, adult
CPT/HCPCS: 36415; 80053; 85025; 99252; 99283; J7030; A4216; G0463; J3490

== ENCOUNTER → 2022-09-17 | Outpatient (CLI) | payer OTHER, SELFPAY ==
[2022-09-17 12:04] LABS: Absolute Lymphocyte Count 2.06 X10^3/uL (0.83-4.51); Absolute Neutrophil Count 3.7 X10^3/uL (2.0-7.7); Basophil# 0.05 X10^3/uL; Basophil% 0.7 % (0-1); Eosinophil# 0.23 X10^3/uL; Eosinophils% 3.3 % (0-5); Hematocrit 45.5 % (40-54); Hemoglobin 15.1 g/dL (13.0-16.5); Lymphocyte # 2.06 X10^3/ul (0.83-4.51); Lymphocyte % 29.7 % (19-41); Mean Corp Hgb Conc 33.2 g/dL (32-36); Mean Corpuscular Hgb 29.4 pg (27.0-32.0); Mean Corpuscular Volume 88.5 fL (80-94); Mean Platelet Vol. 10.1 fl (6.2-12.0); Monocyte# 0.89 X10^3/uL; Monocyte% 12.8 % (0-10); NRBC Flagged by Analyzer 0 % (0-5); Neutrophil # 3.69 X10^3/uL (2.7-7.7); Neutrophil % 53.2 % (47-70); Platelet Count 374 K/mm3 (150-450); RBC Distribution Width CV 14.2 % (11.6-14.6); RBC Distribution Width SD 45.6 fl (35.1-43.9); Red Blood Count 5.14 M/mm3 (4.6-6.2); White Blood Count 6.9 K/mm3 (4.4-11.0)
[2022-09-17 12:54] LABS: ALB/GLOB Ratio 1.1 RATIO (0.9-2.4); AST(SGOT) 29 U/L (15-37); Alanine Aminotransfer ALT/SGPT 52 U/L (16-61); Albumin, Serum 4.1 g/dL (3.2-5.0); Alkaline Phosphatase 65 U/L (45-117); Anion Gap 9 (5-15); BUN 13 mg/dL (7-18); BUN/Creat Ratio 11.5 RATIO (10-20); Calcium,Total 9.6 mg/dL (8.5-10.1); Chloride 104 mmol/L (98-107); Creatinine, Serum 1.13 mg/dL (0.70-1.30); EST Glomerular Filtration Rate 71 mL/min (>60); Est Glom Filt Rate - Afr Amer 86 mL/min (>60); Globulin 3.8 g/dL (2.2-4.2); Glucose 82 mg/dL (74-106); Lipase 111 U/L (73-393); Potassium 4.6 mmol/L (3.5-5.1); Protein, Total 7.9 g/dL (6.4-8.2); Sodium Level 138 mmol/L (136-145)
== END | disposition home or self-care (01) ==
LOC: MFPLAB 10:10
PROVIDERS: PCP Family Medicine; Visit Provider Family Medicine
DX: R10.9 Unspecified abdominal pain (principal)
CPT/HCPCS: 36415; 80053; 83690; 85025

== ENCOUNTER → 2022-09-17 | Outpatient (CLI) | payer OTHER, SELFPAY ==
--- NOTE | 2022-09-17 11:00 | CT_ITS ---
STUDY: CT ABDOMEN AND PELVIS WITH CONTRAST REASON FOR EXAM: Male, 56 years old. Left lower quadrant abdominal pain. History of umbilical hernia. RADIATION DOSAGE (If Supplied By Facility): CTDIvol = ( 16.86 ) mGy, DLP = ( 1310.69 ) mGycm TECHNIQUE: Transaxial images were obtained from the dome of the diaphragm to the symphysis pubis without oral contrast. IV 100mL Isovue-300 was administered. Sagittal and coronal images were reconstructed. Individualized dose optimization techniques were used for this CT. COMPARISON: None. FINDINGS: The visualized lung bases are unremarkable. The visualized portions of the heart are within normal limits. Normal liver. Sludge is seen within the gallbladder lumen. Normal spleen. Normal pancreas. Normal bilateral adrenal glands. Normal right kidney. Normal left kidney. There is a small hiatal hernia. Normal small intestine. There is diverticulosis, with thickening of the colon wall, and pericolonic inflammation changes consistent with acute diverticulitis. Localized perforation is seen along the peritoneal side of the sigmoid mesentery with increased markings in keeping with the inflammatory change The appendix is visualized and appears normal. There is scattered atherosclerotic calcification of the abdominal aorta, without a demonstrated aneurysm. Normal inferior vena cava. There is borderline retroperitoneal lymphadenopathy with enlarged nodes no greater than 10mm in the short axis diameter. Mild degree of the urinary bladder wall thickening although the bladder is not completely distended. There are prostatic calcifications. Small bilateral inguinal hernias containing fat slightly more prominent on the left side. Normal osseous structures. CT/Abdomen/Pelvis WITH Contrast IMPRESSION: Localized acute sigmoid diverticulitis with loculated perforation in the mesenteric side of the sigmoid mesentery. Electronically Signed: Jesus Draper MD at 13:57 EST ,
== END | disposition home or self-care (01) ==
PROVIDERS: PCP Family Medicine; Visit Provider Family Medicine
DX: K44.9 Diaphragmatic hernia without obstruction or gangrene (principal); K57.32 Diverticulitis of large intestine without perforation or abscess without bleeding; R93.41 Abnormal radiologic findings on diagnostic imaging of renal pelvis, ureter, or bladder; K83.8 Other specified diseases of biliary tract; K40.20 Bilateral inguinal hernia, without obstruction or gangrene, not specified as recurrent; R59.1 Generalized enlarged lymph nodes
CPT/HCPCS: 74177; Q9967

== ENCOUNTER → 2022-11-30 | Outpatient (CLI) | payer OTHER, SELFPAY ==
--- NOTE | 2022-11-30 10:06 | RAD_ITS ---
STUDY: X-RAY - PELVIS AND LEFT HIP REASON FOR EXAM: Male, 57 years old. PAIN TECHNIQUE: 3 views of the pelvis and hip. COMPARISON: None. FINDINGS: There is a non-specific bowel gas pattern. Normal visualized soft tissue structures. Normal bilateral iliac wings, sacroiliac joints and visualized sacrum. Normal bilateral superior and inferior pubic rami. Normal pubic symphysis. Normal bilateral ischial tuberosities. Normal visualized femoral head. Normal acetabulum. Normal hip joint. RAD/HIP, UNI W/ Pelvis 2-3 Views IMPRESSION: Normal x-ray examination of the pelvis and hip. Electronically Signed: Jarrod De Paz MD at 17:33 EDT ,
== END | disposition home or self-care (01) ==
LOC: MTRAD 10:03
PROVIDERS: PCP Family Medicine; Referring Provider Internal Medicine Rheumatology; Visit Provider Internal Medicine Rheumatology
DX: M05.79 Rheumatoid arthritis with rheumatoid factor of multiple sites without organ or systems involvement (principal); I10 Essential (primary) hypertension; E78.5 Hyperlipidemia, unspecified; Z79.899 Other long term (current) drug therapy
CPT/HCPCS: 73502

== ENCOUNTER → 2022-12-19 | Outpatient (CLI) | payer OTHER, SELFPAY ==
--- NOTE | 2022-12-19 15:08 | RAD_ITS ---
STUDY: X-RAY - LEFT KNEE REASON FOR EXAM: Male, 57 years old. PAIN TECHNIQUE: 4 view(s) of the knee. COMPARISON: None. FINDINGS: Normal visualized distal femur. Normal visualized proximal tibia and fibula. Normal proximal tibiofibular articulation. There is mild degenerative arthrosis of the medial femorotibial compartment. There is mild degenerative arthrosis of the lateral femorotibial compartment. There is mild degenerative arthrosis of the patellofemoral articulation. The soft tissue structures are unremarkable. RAD/Knee 4 or More Views IMPRESSION: Mild tricompartmental arthrosis. Electronically Signed: Kirill Jarvis MD at 15:22 EDT ,
== END | disposition home or self-care (01) ==
LOC: MTRAD 15:05
PROVIDERS: PCP Family Medicine; Referring Provider Family Medicine; Visit Provider Family Medicine
DX: M25.569 Pain in unspecified knee (principal)
CPT/HCPCS: 73564

== ENCOUNTER → 2023-02-26 | Outpatient (CLI) | payer OTHER, SELFPAY ==
[2023-02-27 15:08] LABS: G6PD Quant Test 255 (127-427); Red Blood Cell Count Test/G6PD 5.15 x10E6/uL (4.14-5.80)
== END | disposition home or self-care (01) ==
LOC: MTLAB 08:06
PROVIDERS: PCP Family Medicine; Referring Provider Internal Medicine Rheumatology; Visit Provider Internal Medicine Rheumatology
DX: M05.79 Rheumatoid arthritis with rheumatoid factor of multiple sites without organ or systems involvement (principal); Z79.899 Other long term (current) drug therapy
CPT/HCPCS: 36415; 82955

== ENCOUNTER → 2023-05-24 | Outpatient (CLI) | payer OTHER, SELFPAY ==
[2023-05-24 10:33] LABS: ALB/GLOB Ratio 1.3 RATIO (0.9-2.4); AST(SGOT) 31 U/L (15-37); Alanine Aminotransfer ALT/SGPT 42 U/L (16-61); Albumin, Serum 4.4 g/dL (3.2-5.0); Alkaline Phosphatase 53 U/L (45-117); Anion Gap 5 (5-15); BUN 15 mg/dL (7-18); BUN/Creat Ratio 12.2 RATIO (10-20); Calcium,Total 9.2 mg/dL (8.5-10.1); Chloride 104 mmol/L (98-107); Cholesterol 160 mg/dL (200); Creatinine, Serum 1.23 mg/dL (0.70-1.30); EST Glomerular Filtration Rate 64 mL/min (>60); Est Glom Filt Rate - Afr Amer 78 mL/min (>60); Globulin 3.4 g/dL (2.2-4.2); Glucose 91 mg/dL (74-106); High Density Lipoprotein 50 mg/dL; Potassium 3.8 mmol/L (3.5-5.1); Protein, Total 7.8 g/dL (6.4-8.2); Sodium Level 136 mmol/L (136-145); Triglycerides 139 mg/dL; Very Low Density Lipoprotein 28 mg/dL (5-40)
[2023-05-25 08:11] LABS: Lyme Scn Total Ab w/Rflx Negative (Negative)
== END | disposition home or self-care (01) ==
LOC: MTLAB 08:29
PROVIDERS: PCP Family Medicine; Referring Provider Family Medicine; Visit Provider Family Medicine
DX: E78.5 Hyperlipidemia, unspecified (principal); M17.11 Unilateral primary osteoarthritis, right knee
CPT/HCPCS: 36415; 80053; 80061; 86618

== ENCOUNTER → 2023-11-01 | Outpatient (CLI) | payer OTHER, SELFPAY ==
--- OUTSIDE RECORDS SUMMARY | 2023-11-01 08:14 | XMS RPT_ITS | CCD ---
Author Name Unknown Address [address] [place] [address] Organization [facility] Care Team Providers Care Wellness Program Manager Name Role Phone David Nguyen MD Primary Care Provider DONNIE CASTELAN Attending [facility] Referring Unav ailable DAVID NGUYEN Consulting Unavailable DULCE MARIA GIBSON MD Admitting Unavailable DULCE MARIA GIBSON MD Primary Care Unavailable DULCE MARIA GIBSON MD Attending Unavailable PROVIDER, UNKNOWN Consulting Unavailable DAVID NGUYEN Consulting Unavailable DULCE MARIA GIBSON MD Admitting Unavailable DULCE MARIA GIBSON MD Primary Care Unavailable DULCE MARIA GIBSON MD Attending Unavailable PROVIDER, UNKNOWN Consulting Unavailable DULCE MARIA GIBSON MD Admitting Unavailable DAVID NGUYEN Consulting Unavailable DULCE MARIA GIBSON MD Primary Care Unavailable DULCE MARIA GIBSON MD Attending Unavailable PROVIDER, UNKNOWN Consulting Unavailable DULCE MARIA GIBSON MD Admitting Unavailable DULCE MARIA GIBSON MD Primary Care Unavailable DAVID NGUYEN Consulting Unavailable DULCE MARIA GIBSON MD Attending Unavailable PROVIDER, UNKNOWN Consulting Unavailable DULCE MARIA GIBSON MD Admitting Unavailable DAVID NGUYEN Consulting Unavailable DULCE MARIA GIBSON MD Primary Care Unavailable DULCE MARIA GIBSON MD Attending Unavailable PROVIDER, UNKNOWN Consulting Unavailable DULCE MARIA GIBSON MD Attending Unavailable DAVID NGUYEN Consulting Unavailable DULCE MARIA GIBSON MD Admitting Unavailable DULCE MARIA GIBSON MD Primary Care Unavailable PROVIDER, UNKNOWN Consulting Unavailable Medications Completed/Discontinued Medications Medication Drug Class(es) Dates Sig (Normalized) Sig (Original) amLODIPine 10 mg oral tablet (2 sources) Dihydropyridine Calcium Channel Rhianna Start: 08-13-2022 amLODIPine (NORVASC) 10 mg tablet amoxicillin 500 mg / clavulanate 125 mg oral tablet (2 sources) Penicillin-class Antibacterial Start: 09-18-2022 take 1 tablet by mouth every twelve hours amoxicillin-clavula niharika acid (AUGMENTIN) 500-125 mg per tablet TAKE 1 TABLET BY MOUTH EVERY 12 HOURS FOR PERFORATED SIGMOID DIVERTICULITIS 0 09/18/2022 Active Problems Problem Classification Problem Date Documented Da te Episodic/Chronic Other gastrointestinal disorders (1 source) Perforation of sigmoid colon; Translations: [Perforation of intestine (nontraumatic)] Episodic Results Test Name Value Interpretation Reference Range Facil ity Vital Signs Date Time Vital Sign Value Performing Clinician Faci lity 09-24-2022 14:40-0500 Body height 175.3 cm Donnie Castelan MD Work Phone: [facility] 09-24-2022 14:40-0500 Body temperature 98.49 [degF] Dnonie Castelan MD Work Phone: [facility] 09-24-2022 14:40-0500 Body weight 108.68 kg Donnie Castelan MD Work Phone: [facility] 09-24-2022 14:40-0500 Diastolic blood pressure 86 mm[Hg] Donnie Castelan MD Work Phone: [facility] 09-24-2022 14:40-0500 Heart rate 93 /min Donnie Castelan MD Work Phone: [facility] 09-24-2022 14:40-0500 SaO2% (BldA) [Mass fraction] 93 % Donnie Castelan MD Work Phone: [facility] 09-24-2022 14:40-0500 Systolic blood pressure 124 mm[Hg] Donnie Castelan MD Work Phone: [facility] Encounters Encounter Date Encounter Type Care Provider Facility Start: 10-28-2023 End: 10-28-2023 ambulatory DULCE MARIA Nice [facility] Start: 07-19-2023 End: 07-19-2023 [facility] Start: 07-03-2023 End: 07-03-2023 ambulatory DULCE MARIA EN[facility] Start: 05-02-2023 End: 05-02-2023 ambulatory DAVID Lopez NGUYEN Eder [facility] Start: 02-19-2023 End: 02-19-2023 ambulatory [facility] Start: 11-26-2022 End: 11-26-2022 ambulatory DULC EMARIA ENRIQUE HYUNTRAM Eder [facility] Start: 09-25-2022 Telephone encounter Donnie ruelas MD Work Phone: General Surgery Plan of Treatment Date Care Activity Detail Author Start: 09-09-2022 DEPRESSION ASSESSMENT DEPRESSION ASS ESSMENT [facility] Start: 2020 PROSTATE CANCER SCRE ENING DISCUSSION PROSTATE CANCER SCREENING DISCUSSION [facility] Start: 11-15-2020 COVID-19 VACCINE (3 - Moderna risk series) COVID-19 VACCINE (3 - Moderna risk series) [facility] Start: 2010 COLOGUARD (FIT-DNA) COLOGUARD (FIT-D NA) [facility] Start: 2010 Colonoscopy COLONOSCOPY [facility] Start: 2010 COLORECTAL CANCER SCREENING COLORECTAL CANCER SCREENING [facility] Start: [address] COLONOGRAPHY [facility] Start: 2010 DIABETES SCREEN DIABETES SCREEN [facility] Start: 2010 FECAL OCCULT BLOOD FECAL OCCULT BLOO D [facility] Start: 2010 SIGMOIDOSCOPY SIGMOIDOSCOPY [facility] Start: 2000 LIPID SCREEN LIPID SCREEN [facility] Start: 1984 SHINGRIX VACCINE (1 of 2) SHINGRIX V ACCINE (1 of 2) [facility] Start: 1984 Urine microalbumin profile DTAP,TDAP ,TD (1 - Tdap) [facility] Start: 11-30-1983 HEPATITIS C SCREENING HEPATITIS C SC RAMONE [facility] Start: 11-30-1983 HIV SCREENING HIV SCREENING [facility] Start: 11-30-1971 PNEUMOCOCCAL (1 - PCV) PNEUMOCOCCAL (1 - PCV) [facility] Start: 1965 HEPATITIS B (1 of 3 - 3-dose series) HEPATITIS B (1 of 3 - 3-dose series) [facility] Payers Date Payer Category Payer Unknown [employer] PPO [id number] 2022-Present [phone] [address] [place] [address] PPO [id number] 2022 Unknown [id number] 1965 Unknown [id number] 1965 Unknown [id number] 1965 Unknown [id number] 1965 Unknown [id number] 1965 Unknown [id number] 1965 Unknown [id number] Social History Date Type Detail Facility Start: 09-24-2022 Tobacco smoking stat [facility] Never smoked tobacco [facility] Start: 09-24-2022 Tobacco use and exposure Smokeless t obacco non-user [facility] Start: 09-24-2022 Alcohol intake Lifetime non-d lauren (finding) [facility] Start: 1965 Sex Assigned At Not on file [facility] Note 09-25-2022 Telephone Encounter - Debbie Rosado LPN - 09/25/2022 4:29 PM ESTTelephone Encounter - Debbie Rosado LPN - 09/25/2022 4:12 PM EST Note Date & Type Note Facility 09-25-2022 Miscellaneous Notes Formattin g of this note might be different from the original. Faxed over referral and office to Dr Villegas office per patient request. Patient Ofelia Called asking for a referral to see Dr Silviano Snyder, d/t not able to see Dr Gill until October 10. Patient wants to know if able to eat and can patient work? This nurse spoke to Dr Castelan and patient is allowed to work and to eat a bland diet. Ofelia was called and updated. documented in this encounter [facility] Progress note 09-24-2022 Note Date & Type Note Facility 09-24-2022 Note HNO ID: [id number] Author: Donnie Castelan MD Service: ? Author Type: Physician Type: Progress Notes Filed: 09/24/2022 2:58 PM Note Text: HISTORY AND PHYSICAL Sangita Conn 1965 REFERRING PHYSICIAN: [facility]* CHIEF COMPLAINT: Consult (ER follow up) HPI: The patient is a 56 year old male with a complaint of follow-up from a hospitalization at [facility]. I originally saw this gentleman on 09/17/2022. He presented to the [facility] emergency department with new onset of left lower quadrant abdominal pain a CT scan was performed which showed acute sigmoid diverticulitis with local perforation in the mesenteric side of the sigmoid colon. His labs did not show leukocytosis he gradually improved on conservative therapy. And was discharged. He was having bowel movements. Am seeing him back in the office today and he still says he is having abdominal discomfort slightly more medial and underneath the umbilical area. He is passing gas but he just does not feel normal. . The patient is being seen by me today at the request of Dr. David Nguyen MD for my opinion and advice regarding Perforated sigmoid colon (hcc) (primary encounter diagnosis). PAST MEDICAL HISTORY Diagnosis Date Diverticulitis HLD (hyperlipidemia) HTN (hypertension) Obesity Rheumatoid arthritis (HCC) PAST SURGICAL HISTORY Procedure Laterality Date APPENDECTOMY BACK SURGERY HX neck surgery KNEE LEFT OP SURGERY KNEE RIGHT OP SURGERY REPAIR ING HERNIA,5+Y/O,REDUCIBL Current Outpatient Medications Medication Sig amLODIPine (NORVASC) 10 mg tablet atorvastatin (LIPITOR) 20 mg tablet Take 20 mg by mouth daily at bedtime. lisinopril-hydroCHLOROthiazide (PRINZIDE, ZESTORETIC) 20-25 mg per tablet cholecalciferol (VITAMIN D3) 5,000 unit tab Take by mouth. folic acid 1 mg tablet Take 2 mg by mouth once daily. hydrOXYchloroQUINE (PLAQUENIL) 200 mg tablet Take 200 mg by mouth twice daily. meloxicam (MOBIC) 15 mg tablet methotrexate 2.5 mg tablet TAKE 8 TABLETS BY MOUTH ONCE A WEEK predniSONE (DELTASONE) 10 mg tablet TAKE 1 TABLET BY MOUTH ONCE DAILY NEEDED TAKE 3 TO 5 DAYS WITH A FLARE turmeric root extract 500 mg cap Take by mouth. amoxicillin-clavulanic acid (AUGMENTIN) 500-125 mg per tablet TAKE 1 TABLET BY MOUTH EVERY 12 HOURS FOR PERFORATED SIGMOID DIVERTICULITIS No current facility-administered medications for this visit. ALLERGIES: Patient has no allergy information on record. PERSONAL HISTORY: Social History Tobacco Use Smoking status: Never Smokeless tobacco: Never Vaping Use Vaping Use: Never used Substance Use Topics Alcohol use: Never Drug use: Never FAMILY HISTORY: FAMILY HISTORY Problem Relation Age of Onset Hypertension Father Breast Cancer Sister REVIEW OF SYMPTOMS: The review of systems data was entered by the nurse and reviewed by md Nursing Notes: Africa Jones RN 09/24/2022 2:40 PM Signed REVIEW OF SYSTEMS: General: The patient denies fatigue, denies weight loss, denies weight gain, denies feeling hot, and denies feelings of cold. Eyes: The patient denies glaucoma, denies eye injury/surgery, does not wear glasses or contacts. Ear/Nose/Throat: The patient denies allergies, denies hayfever, denies ear infections, and denies bloody noses. Cardiovascular: The patient denies chest pain, denies heart disease, NOTES high blood pressure,denies cardiac stent, denies prior heart attack, denies irregular heart beat, NOTES high cholesterol, denies poor circulation, denies heart failure, other cardiac issues, denies claudication, denies cold feet, denies peripheral arterial stent. Respiratory: The patient denies tuberculosis, denies pneumonia, denies frequent cough, denies pulmonary embolism, denies shortness of breath, and denies coughing up blood. Gastrointestinal: The patient denies difficulty swallowing, denies acid reflux, denies ulcers, denies vomiting, denies jaundice/hepatitis, denies gallbladder problems, denies black or tarry stools, denies hemorrhoids, denies bleeding from rectum, NOTES diverticulitis, denies constipation, NOTES diarrhea, denies loss of stool control, and denies hernias. Kidney/Bladder: The patient denies kidney stones, denies urine infections, and denies bloody urine. Skin: The patient denies a history of skin cancer, denies bleeding/changing moles, and denies a history of skin rash. Neurologic: The patient denies a history of epilepsy/convulsions, denies headaches, denies head/spinal injuries, and denies stroke/TIA. Psychiatric: The patient denies psychiatric medications, denies depression, and denies voices, denies substance abuse. Endocrine: The patient denies thyroid disorders, denies diabetes, and denies hormonal problems. Hematologic: The patient denies a history of bruising, denies bleeding, and denies anemia, denies blood clots. Infections: The patient riccardo (more content not included)... [facility] History of Present illness Narrative 09-24-2022 Donnie Castelan MD - 09/24/2022 2:52 PM EST Note Date & Type Note Facility 09-24-2022 History of Presen t illness Narrative HISTORY AND PHYSICAL Sangita Conn 1965 REFERRING PHYSICIAN: [facility]* CHIEF COMPLAINT: Consult (ER follow up) HPI: The patient is a 56 year old male with a complaint of follow-up from a hospitalization at [facility]. I originally saw this gentleman on 09/17/2022. He presented to the [facility] emergency department with new onset of left lower quadrant abdominal pain a CT scan was performed which showed acute sigmoid diverticulitis with local perforation in the mesenteric side of the sigmoid colon. His labs did not show leukocytosis he gradually improved on conservative therapy. And was discharged. He was having bowel movements. Am seeing him back in the office today and he still says he is having abdominal discomfort slightly more medial and underneath the umbilical area. He is passing gas but he just does not feel normal. . The patient is being seen by me today at the request of Dr. David Nguyen MD for my opinion and advice regarding Perforated sigmoid colon (hcc) (primary encounter diagnosis). PAST MEDICAL HISTORY Diagnosis Date Diverticulitis HLD (hyperlipidemia) HTN (hypertension) Obesity Rheumatoid arthritis (HCC) PAST SURGICAL HISTORY Procedure Laterality Date APPENDECTOMY BACK SURGERY HX neck surgery KNEE LEFT OP SURGERY KNEE RIGHT OP SURGERY REPAIR ING HERNIA,5+Y/O,REDUCIBL Current Outpatient Medications Medication Sig amLODIPine (NORVASC) 10 mg tablet atorvastatin (LIPITOR) 20 mg tablet Take 20 mg by mouth daily at bedtime. lisinopril-hydroCHLOROthiazide (PRINZIDE, ZESTORETIC) 20-25 mg per tablet cholecalciferol (VITAMIN D3) 5,000 unit tab Take by mouth. folic acid 1 mg tablet Take 2 mg by mouth once daily. hydrOXYchloroQUINE (PLAQUENIL) 200 mg tablet Take 200 mg by mouth twice daily. meloxicam (MOBIC) 15 mg tablet methotrexate 2.5 mg tablet TAKE 8 TABLETS BY MOUTH ONCE A WEEK predniSONE (DELTASONE) 10 mg tablet TAKE 1 TABLET BY MOUTH ONCE DAILY NEEDED TAKE 3 TO 5 DAYS WITH A FLARE turmeric root extract 500 mg cap Take by mouth. amoxicillin-clavulanic acid (AUGMENTIN) 500-125 mg per tablet TAKE 1 TABLET BY MOUTH EVERY 12 HOURS FOR PERFORATED SIGMOID DIVERTICULITIS No current facility-administered medications for this visit. ALLERGIES: Patient has no allergy information on record. PERSONAL HISTORY: Social History Tobacco Use Smoking status: Never Smokeless tobacco: Never Vaping Use Vaping Use: Never used Substance Use Topics Alcohol use: Never Drug use: Never FAMILY HISTORY: FAMILY HISTORY Problem Relation Age of Onset Hypertension Father Breast Cancer Sister REVIEW OF SYMPTOMS: The review of systems data was entered by the nurse and reviewed by me Nursing Notes: Africa Jones RN 09/24/2022 2:40 PM Signed REVIEW OF SYSTEMS: General: The patient denies fatigue, denies weight loss, denies weight gain, denies feeling hot, and denies feelings of cold. Eyes: The patient denies glaucoma, denies eye injury/surgery, does not wear glasses or contacts. Ear/Nose/Throat: The patient denies allergies, denies hayfever, denies ear infections, and denies bloody noses. Cardiovascular: The patient denies chest pain, denies heart disease, NOTES high blood pressure,denies cardiac stent, denies prior heart attack, denies irregular heart beat, NOTES high cholesterol, denies poor circulation, denies heart failure, other cardiac issues, denies claudication, denies cold feet, denies peripheral arterial stent. Respiratory: The patient denies tuberculosis, denies pneumonia, denies frequent cough, denies pulmonary embolism, denies shortness of breath, and denies coughing up blood. Gastrointestinal: The patient denies difficulty swallowing, denies acid reflux, denies ulcers, denies vomiting, denies jaundice/hepatitis, denies gallbladder problems, denies black or tarry stools, denies hemorrhoids, denies bleeding from rectum, NOTES diverticulitis, denies constipation, NOTES diarrhea, denies loss of stool control, and denies hernias. Kidney/Bladder: The patient denies kidney stones, denies urine infections, and denies bloody urine. Skin: The patient denies a history of skin cancer, denies bleeding/changing moles, and denies a history of skin rash. Neurologic: The patient denies a history of epilepsy/convulsions, denies headaches, denies head/spinal injuries, and denies stroke/TIA. Psychiatric: The patient denies psychiatric medications, denies depression, and denies voices, denies substance abuse. Endocrine: The patient denies thyroid disorders, denies diabetes, and denies hormonal problems. Hematologic: The patient denies a history of bruising, denies bleeding, and denies anemia, denies blood clots. Infections: The patient denies a history of measles and mumps, denies rheumatic fever, and denies sexually transmitted diseases. Musculoskeletal: The patient denies back pain/injury, denies back problems, denies sciatica, denies knee/foot trouble, NOTES arthritis, or denies gout. When was patient's last Mammogram screening? N/A Last Colonoscopy: 2019 Africa Jones RN PHYSICAL EXAMINATION: General: The patient is 56 year old male, well nourished, well hydrated in no acute distress. The patient is oriented to time, place, and person. VITALS: Blood pressure 124/86, pulse 93, temperature 36.9 C (98.5 F), height 175.3 cm (5' 9 ), weight 108.7 kg (239 lb 9.6 oz), SpO2 93 %. HEENT: Normal cephalic, ataumatic, pupils are equally round, sclera are anicteric, mucous membranes are moist, oropharynx is clear. Neck has no masses, asymmetry or lymphadenopathy. Thyroid is unremarkable. Respiratory: Clear to auscultation and percussion. Normal respiratory excursion and pattern. Cardiac: Examination is regular rate and rhythm. Abdominal exam: Soft, patient is tender suprapubically. He has no rebound guarding or peritoneal signs identified., with no palpable masses. No hepatosplenomegaly. No palpable hernias. Rectal exam: exam deferred Extremities: no clubbing, cyanosis or edema. No adenopathy. Other: LABORATORY VALUES: As Noted RADIOLOGIC STUDIES: As Noted Assessment IMPRESSION: Perforated sigmoid colon (hcc) (primary encounter diagnosis) PLAN: I am going to refer him to colorectal surgery to see if they might be able to do a laparoscopic sigmoid resection on him. I am worried that he is not going to get better on conservative therapy and I would rather be more proactive in seeking out a colorectal surgeon consult. Diagnoses: (K63.1) Perforated sigmoid colon (HCC) (primary encounter diagnosis) A letter was sent to Dr. David Nguyen MD indicating the above finding for this patient. Return to Clinic: The patient is instructed to follow-up with me as needed. Donnie Castelan III, MD documented in this encounter [facility] Nurse Note 09-24-2022 Africa Jones RN - 09/24/2022 2:37 PM EST Note Date & Type Note Facility 09-24-2022 Nurse Note REVIEW OF SYSTEMS: General: The patient denies fatigue, denies weight loss, denies weight gain, denies feeling hot, and denies feelings of cold. Eyes: The patient denies glaucoma, denies eye injury/surgery, does not wear glasses or contacts. Ear/Nose/Throat: The patient denies allergies, denies hayfever, denies ear infections, and denies bloody noses. Cardiovascular: The patient denies chest pain, denies heart disease, NOTES high blood pressure,denies cardiac stent, denies prior heart attack, denies irregular heart beat, NOTES high cholesterol, denies poor circulation, denies heart failure, other cardiac issues, denies claudication, denies cold feet, denies peripheral arterial stent. Respiratory: The patient denies tuberculosis, denies pneumonia, denies frequent cough, denies pulmonary embolism, denies shortness of breath, and denies coughing up blood. Gastrointestinal: The patient denies difficulty swallowing, denies acid reflux, denies ulcers, denies vomiting, denies jaundice/hepatitis, denies gallbladder problems, denies black or tarry stools, denies hemorrhoids, denies bleeding from rectum, NOTES diverticulitis, denies constipation, NOTES diarrhea, denies loss of stool control, and denies hernias. Kidney/Bladder: The patient denies kidney stones, denies urine infections, and denies bloody urine. Skin: The patient denies a history of skin cancer, denies bleeding/changing moles, and denies a history of skin rash. Neurologic: The patient denies a history of epilepsy/convulsions, denies headaches, denies head/spinal injuries, and denies stroke/TIA. Psychiatric: The patient denies psychiatric medications, denies depression, and denies voices, denies substance abuse. Endocrine: The patient denies thyroid disorders, denies diabetes, and denies hormonal problems. Hematologic: The patient denies a history of bruising, denies bleeding, and denies anemia, denies blood clots. Infections: The patient denies a history of measles and mumps, denies rheumatic fever, and denies sexually transmitted diseases. Musculoskeletal: The patient denies back pain/injury, denies back problems, denies sciatica, denies knee/foot trouble, NOTES arthritis, or denies gout. When was patient's last Mammogram screening? N/A Last Colonoscopy: 2019 Africa Jones RN documented in this encounter [facility] Note 09-24-2022 Telephone Encounter - Donnie Castelan MD - 09/24/2022 7:07 AM ESTTelephone Encounter - Fay Lynn - 09/20/2022 10:47 AM EST Note Date & Type Note Facility 09-24-2022 Miscellaneous Notes Formattin g of this note might be different from the original. Any CAT scans will be determined after he follows up in the office with Melyssa Spouse is calling to arrange a [facility] hosp follow up with Dr Castelan, spouse mention provider wanting a repeat CT scan in about three weeks. Please advise how this patient needs to be scheduled. documented in this encounter [facility] Evaluation note Note Date & Type Note Facility documented in this encounter [facility] Reason for Referral Specialty Diagnoses / Procedures Referred By Alfie stubbs Referred To Contact General Surgery Diagnoses Perforated sigmoid colon (HCC) Procedures CONSULT TO GENERAL SURGERY OFFICE/OUTPATIENT NEW HIGH MDM 60-74 MINUTES Donnie Castelan MD [address] [place] [address] Robert Gill MD 1 [facility] [address] [place] [address] Referral ID Status Reason Start Date Expiration Date Visits Requested Visits Authorized [id number] Pending Review PCP Requested Referral 09/24/2022 09/24/2023 1 1 Summary Purpose Family History No Family History Records FoundNo Family History Records Found Advance Directives No Advanced Directives Records FoundNo Advanced Directives Records Found Additional Source Comments Source Comments (unrecognize d section and content) In the event this informatio n is protected by the Federal Confidentiality of Alcohol and Drug Abuse Patient Records regulations: The Federal rules restrict any use of the information to criminally investigate or prosecute any alcohol or drug abuse patient.[facility] ClinicIn the event this information is protected by the Federal Confidentiality of Alcohol and Drug Abuse Patient Records regulations: The Federal rules restrict any use of the information to criminally investigate or prosecute any alcohol or drug abuse patient.[facility] Center[facility] the event this information is protected by the Federal Confidentiality of Alcohol and Drug Abuse Patient Records regulations: The Federal rules restrict any use of the information to criminally investigate or prosecute any alcohol or drug abuse patient.[facility] Reason for Visit (unrecogniz ed section and content) Specialty Diagnoses / Procedures Referred By Alfie stubbs Referred To Contact GENERAL SURGERY Diagnoses f/u ER for perforated bowel, pain 6/10 when lying down ra Procedures [address] [address] Donnie Castelan MD [address] [place] [address] Referral ID Status Reason Start Date Expiration Date Visits Re quested Visits Authorized [id number] Closed 09/24/2022 09/08/2023 1 1 Reason Comments Patient Question Referral Dr Zaida bautista Reason Comments Appointment Care Teams (unrecognized sec tion and content) Wellness Program Manager Relationship Specialty Start Date End Date David Nguyen MD [address] [facility] [address] [place] [address] PCP - General Family Medicine 09/24/22 Wellness Program Manager Relationship Specialty Start Date End Date David Nguyen MD [address] [facility] [address] [place] [address] PCP - General Family Medicine 09/24/22 (unrecognized sect ion and content) No Status Records FoundNo Status Records Found INFORMATION SOURCE (unrecogn ized section and content) DATE CREATED AUTHOR AUTHOR'S JASON ATCHANTEL 10/28/2023 [facility] FOR RECORDS PERTAINING TO PATIENTS WHO ARE OR HAVE BEEN ENROLLED IN A CHEMICAL DEPENDENCY/SUBSTANCEABUSE PROGRAM, SOME INFORMATION MAY BE OMITTED. This clinical summary was aggregated from multiple sources. Caution should be exercised in using it in the provision of clinical care. This summary normalizes information from multiple sources, and as a consequence, information in this document may materially change the coding, format and clinical context of patient data. In addition, data may be omitted in some cases. CLINICAL DECISIONS SHOULD BE BASED ON THE PRIMARY CLINICAL RECORDS. [email or web address] provides no warranty or guarantee of the accuracy or completeness of information in this document.
--- NOTE | 2023-11-01 08:15 | RAD_ITS ---
STUDY: X-RAY - RIGHT KNEE REASON FOR EXAM: Male, 57 years old. RHEUMATOID ARTHRITIS TECHNIQUE: 4 view(s) of the knee. COMPARISON: 07/31/2021. FINDINGS: Normal visualized distal femur. Normal visualized proximal tibia and fibula. Normal proximal tibiofibular articulation. There is no demonstrated fracture. Mild narrowing of the medial femorotibial compartment. Normal lateral femorotibial compartment. There is mild degenerative arthrosis of the patellofemoral articulation. There is no demonstrated joint effusion. The soft tissue structures are unremarkable. RAD/Knee 4 or More Views IMPRESSION: Moderate degenerative changes. No acute abnormalities. No evidence for inflammatory arthropathy. Electronically Signed: Jovan Santana MD at 22:59 EST ,
== END | disposition home or self-care (01) ==
LOC: RAD 08:02
PROVIDERS: PCP Family Medicine; Referring Provider Internal Medicine Rheumatology; Visit Provider Internal Medicine Rheumatology
DX: M05.761 Rheumatoid arthritis with rheumatoid factor of right knee without organ or systems involvement (principal); Z79.899 Other long term (current) drug therapy
CPT/HCPCS: 73564

== ENCOUNTER → 2024-01-07 | Outpatient (CLI) | payer OTHER, SELFPAY ==
--- NOTE | 2024-01-07 08:42 | CT_ITS ---
STUDY: CT ABDOMEN AND PELVIS WITH CONTRAST REASON FOR EXAM: Male, 58 years old. Diverticulitis. 2 day history of periumbilical pain. RADIATION DOSAGE (If Supplied By Facility): CTDIvol = ( 16.48 ) mGy, DLP = ( 1242.10 ) mGycm TECHNIQUE: Transaxial images were obtained from the dome of the diaphragm to the symphysis pubis with oral contrast. Oral and amp; IV Gastrografin and amp; 100mL Isovue-300 was administered. Sagittal and coronal images were reconstructed. Individualized dose optimization techniques were used for this CT. COMPARISON: Comparison is made with prior study dated September 17, 2022. FINDINGS: The visualized lung bases are unremarkable. Coronary artery calcification. There is decreased attenuation of the liver consistent with steatosis. Normal gallbladder and extrahepatic biliary system. Normal spleen. Normal pancreas. Normal bilateral adrenal glands. Normal right kidney. Normal left kidney. Normal visualized stomach. Normal small intestine. There is diverticulosis, with thickening of the colon wall, and pericolonic inflammation changes consistent with acute diverticulitis. The appendix is visualized and appears normal. There is scattered atherosclerotic calcification of the abdominal aorta, without a demonstrated aneurysm. Normal inferior vena cava. There is a small retroperitoneal lymphadenopathy with enlarged nodes no greater than 10mm in the short axis diameter. Mild degree of diffuse bladder wall thickening. There is enlargement of the prostate gland. It measures 5.1 cm x 3.2 cm. There is a left-sided inguinal hernia containing adipose tissue. There are mild degenerative changes of the visualized lumbar spine. CT/Abdomen/Pelvis WITH Contrast IMPRESSION: Findings in keeping with a noncomplicated acute sigmoid diverticulitis. Diffuse bladder wall thickening although the bladder is not completely distended at this time. Fatty infiltration of the liver. Electronically Signed: Jesus Draper MD at 12:29 EDT ,
[2024-01-07 11:17] LABS: EGFR FINGERSTICK > 60.0000 mL/min (>60)
== END | disposition home or self-care (01) ==
LOC: CT 08:41
PROVIDERS: PCP Family Medicine; Referring Provider Surgery; Visit Provider Surgery
DX: R10.9 Unspecified abdominal pain (principal); K57.92 Diverticulitis of intestine, part unspecified, without perforation or abscess without bleeding
CPT/HCPCS: 74177; Q9967; A4216

== ENCOUNTER → 2024-04-03 | Outpatient (CLI) | payer OTHER, SELFPAY ==
[2024-04-03 10:07] LABS: Absolute Lymphocyte Count 2.22 X10^3/uL (0.83-4.51); Absolute Neutrophil Count 2.8 X10^3/uL (2.0-7.7); Basophil# 0.07 X10^3/uL; Basophil% 1.2 % (0-1); Eosinophil# 0.17 X10^3/uL; Eosinophils% 2.9 % (0-5); Hematocrit 45.5 % (40-54); Hemoglobin 15.3 g/dL (13.0-16.5); Lymphocyte # 2.22 X10^3/ul (0.83-4.51); Lymphocyte % 38.4 % (19-41); Mean Corp Hgb Conc 33.6 g/dL (32-36); Mean Corpuscular Hgb 28.6 pg (27.0-32.0); Mean Platelet Vol. 9.5 fl (6.2-12.0); Monocyte# 0.56 X10^3/uL; Monocyte% 9.7 % (0-10); NRBC Flagged by Analyzer 0 % (0-5); Neutrophil # 2.75 X10^3/uL (2.7-7.7); Neutrophil % 47.6 % (47-70); Platelet Count 310 K/mm3 (150-450); RBC Distribution Width CV 13.1 % (11.6-14.6); RBC Distribution Width SD 40.6 fl (35.1-43.9); Red Blood Count 5.35 M/mm3 (4.6-6.2); White Blood Count 5.8 K/mm3 (4.4-11.0)
[2024-04-03 12:59] LABS: ALB/GLOB Ratio 1.1 RATIO (0.9-2.4); AST(SGOT) 26 U/L (15-37); Alanine Aminotransfer ALT/SGPT 31 U/L (16-61); Albumin, Serum 4.1 g/dL (3.2-5.0); Alkaline Phosphatase 62 U/L (45-117); Anion Gap 6 (5-15); BUN 18 mg/dL (7-18); BUN/Creat Ratio 15.4 RATIO (10-20); Calcium,Total 9.6 mg/dL (8.5-10.1); Chloride 106 mmol/L (98-107); Creatinine, Serum 1.17 mg/dL (0.70-1.30); EST Glomerular Filtration Rate 68 mL/min (>60); Est Glom Filt Rate - Afr Amer 82 mL/min (>60); Globulin 3.6 g/dL (2.2-4.2); Glucose 89 mg/dL (74-106); Potassium 3.8 mmol/L (3.5-5.1); Protein, Total 7.7 g/dL (6.4-8.2); Sodium Level 138 mmol/L (136-145)
== END | disposition home or self-care (01) ==
LOC: MFPLAB 09:35
PROVIDERS: PCP Family Medicine; Visit Provider Family Medicine
DX: Z01.818 Encounter for other preprocedural examination (principal)
CPT/HCPCS: 36415; 80053; 85025

== ENCOUNTER → 2024-06-09 | Outpatient (CLI) | payer OTHER, SELFPAY ==
[2024-06-09 10:26] LABS: ALB/GLOB Ratio 1.1 RATIO (0.9-2.4); AST(SGOT) 23 U/L (15-37); Alanine Aminotransfer ALT/SGPT 31 U/L (16-61); Albumin, Serum 4.1 g/dL (3.2-5.0); Alkaline Phosphatase 71 U/L (45-117); Anion Gap 6 (5-15); BUN 21 mg/dL (7-18); BUN/Creat Ratio 16.5 RATIO (10-20); Calcium,Total 9.8 mg/dL (8.5-10.1); Chloride 104 mmol/L (98-107); Cholesterol 244 mg/dL (200); Creatinine, Serum 1.27 mg/dL (0.70-1.30); EST Glomerular Filtration Rate 62 mL/min (>60); Est Glom Filt Rate - Afr Amer 75 mL/min (>60); Globulin 3.8 g/dL (2.2-4.2); Glucose 94 mg/dL (74-106); High Density Lipoprotein 52 mg/dL; Protein, Total 7.9 g/dL (6.4-8.2); Sodium Level 137 mmol/L (136-145); Triglycerides 114 mg/dL; Very Low Density Lipoprotein 23 mg/dL (5-40)
== END | disposition home or self-care (01) ==
LOC: MTLAB 07:56
PROVIDERS: PCP Family Medicine; Referring Provider Family Medicine; Visit Provider Family Medicine
DX: E78.5 Hyperlipidemia, unspecified (principal)
CPT/HCPCS: 36415; 80053; 80061

== ENCOUNTER → 2024-12-04 | Outpatient (CLI) | payer OTHER, SELFPAY ==
[2024-12-04 22:00] LABS: ALB/GLOB Ratio 1.6 RATIO (0.9-2.4); AST(SGOT) 35 U/L (<=37); Alanine Aminotransfer ALT/SGPT 41 U/L (<=46); Albumin, Serum 4.8 g/dL (3.5-5.0); Alkaline Phosphatase 67 U/L (40-129); Anion Gap 15 (5-15); BUN 17 mg/dL (4-19); Calcium,Total 9.9 mg/dL (7.6-11.0); Carbon Dioxide 20.4 mmol/L (21.0-32.0); Chloride 102 mmol/L (98-108); Cholesterol 188 mg/dL (<=200); Creatinine, Serum 1.02 mg/dL (0.70-1.20); EST Glomerular Filtration Rate 85 (>60); Glucose 90 mg/dL (70-99); High Density Lipoprotein 48 mg/dL; Low Density Lipoprotein Calc. 116 mg/dL; Protein, Total 7.7 g/dL (5.9-8.4); Sodium Level 137 mmol/L (133-145); Total Bilirubin 0.44 mg/dL (0.00-1.30); Triglycerides 117 mg/dL; Very Low Density Lipoprotein 23 mg/dL (5-40); cholesterol:hdl ratio screen 3.88
== END | disposition home or self-care (01) ==
LOC: MFPLAB 10:20
PROVIDERS: PCP Family Medicine; Referring Provider Family Medicine; Visit Provider Family Medicine
DX: I10 Essential (primary) hypertension (principal)
CPT/HCPCS: 36415; 80053; 80061